=== PATIENT | female | born 1960 | race Caucasian/White ===

== ENCOUNTER 2018-11-14 02:59 | Emergency (ER) | payer MEDICARE ==
[~2018-11-14] VITALS: Ht 152.4 cm; Wt 205.0 kg
[~2018-11-14 02:59] MED LIST: ALPR.25T PO; CALC-671 PO; CALC166. PO; CHOL400T40 PO; MELO-198 PO; MULT-963 PO; OXYC-143 PO; PHEN37.555 PO; VENL150T4 PO
--- OUTSIDE RECORDS SUMMARY | 2018-11-14 03:05 | XMS REPORT ---
Author Author [facility]NAMURTHY [facility] Address [address] [place] [address] Care Team Providers Care Tube Turner Name Role Phone SUZE KRISHNAMURTHY Unavailable PROBLEMS Type Condition ICD9-CM Code [id number] Code Onset Dates Condition Status SNOMED Code Problem Essential (primary) hypertension I10 Active 13293676 ALLERGIES No Information ENCOUNTERS Encounter Location Date Diagnosis [facility] NYDIA ARANDA [address] [address] August, [facility] [address] [address] Jul, [facility] [address] [address] Jul, [address] [address] Jul, [address] [address] Jul, [address] [address] Jun, Essential (primary) hypertension I10 [address] [address] Jun, [address] [address] May, [facility] [address] [facility] [id number] [address] May, [address] [address] May, [facility] [address] [facility] [id number] [address] Apr, [facility] [address] [facility] [id number] [address] August, IMMUNIZATIONS No Known Immunizations SOCIAL HISTORY Never Assessed REASON FOR VISIT needs lab orders PLAN OF CARE VITAL SIGNS MEDICATIONS Unknown Medications RESULTS No Results PROCEDURES No Known procedures INSTRUCTIONS MEDICATIONS ADMINISTERED No Known Medications
--- OUTSIDE RECORDS SUMMARY | 2018-11-14 03:05 | XMS REPORT | Continuity of Care Document ---
Author Organization Unknown Address Unknown Phone Unavailable Allergies Active Description Code Type Severity Reaction Onset Reported/Identified Relationship to Patient Clinical Status Yes ibuprofen [id number] Drug Allergy Unknown N/A 09/06/2014 Medications There is no data. Problems Date Dx Coded Attending Type Code Diagnosis Diagnosed By 09/05/2014 Ot 562.10 09/05/2014 Ot V12.72 09/05/2014 Ot 562.10 09/05/2014 Ot V12.72 09/18/2014 PRASANNA PEREYRA DO Ot 354.0 02/15/2015 Ot 562.10 02/15/2015 Ot V12.72 02/15/2015 PRASANNA PEREYRA DO Ot 354.0 02/15/2015 PRASANNA PEREYRA DO Ot V72.83 02/15/2015 PRASANNA PEREYRA DO Ot V74.8 Procedures There is no data. Results There is no data. Encounters ACCT No. Visit Date/Time Discharge Status Pt. Type Provider Facility Loc./Unit Complaint [id number] 09/18/2014 13:10:00 09/18/2014 16:55:00 DIS Outpatient PRASANNA PEREYRA DO [facility] [id number] 09/06/2014 09:55:00 09/06/2014 23:59:59 CLS Outpatient PRASANNA PEREYRA DO Via [facility] PREOP [id number] 09/30/2010 08:54:00 Document Registration [email or web address] 09/18/2014 13:20:24 ACT Document Registration
--- OUTSIDE RECORDS SUMMARY | 2018-11-14 03:05 | XMS REPORT ---
Author Author SUZE [facility]ISHNAMURTHY [facility] Address [address] [place] [address] Care Team Providers Care Latin American Studies Director Name Role Phone SUZE KRISHNAMURTHY Unavailable PROBLEMS Type Condition ICD9-CM Code [id number]-AG Code Onset Dates Condition Status SNOMED Code Problem Essential (primary) hypertension I10 Active [id number] ALLERGIES No Information ENCOUNTERS Encounter Location Date Diagnosis [facility] NYDIA ARANDA [address] [address] August, [facility] NYDIA [address] [address] Jul, [facility] NYD[place] [address] [address] Jul, [address] [address] Jul, [address] [address] Jul, [address] [address] Jun, Essential (primary) hypertension I10 [address] [address] Jun, [address] [address] May, [facility] [address] [facility] [id number] [address] May, [address] [address] May, [facility] [address] [facility] [id number], [place] [address] Apr, [facility] [address] [facility] [id number], [place] [address] August, IMMUNIZATIONS No Known Immunizations SOCIAL HISTORY Never Assessed REASON FOR VISIT percocet refill PLAN OF CARE VITAL SIGNS MEDICATIONS Medication Instructions Dosage Frequency Start Date End Date Duration Status Percocet 7.5-325 MG Orally every 4 hrs 2 tablets as needed 4h Jun, 30 days Active RESULTS No Results PROCEDURES No Known procedures INSTRUCTIONS MEDICATIONS ADMINISTERED No Known Medications
--- OUTSIDE RECORDS SUMMARY | 2018-11-14 03:05 | XMS REPORT ---
Author Author Migration, Doctor Organization [facility] Address Unknown Phone Unavailable Care Team Providers Care Machine Room Engineer Name Role Phone Migration, Doctor Unavailable Unavailable PROBLEMS Type Condition ICD9-CM Code [id number] Code Onset Dates Condition Status SNOMED Code Problem Essential (primary) hypertension I10 Active [id number] ALLERGIES No Information ENCOUNTERS Encounter Location Date Diagnosis [address] [address] Jul, [address] [address] Jul, [address] [address] Jul, [address] [address] Jul, [address] [address] Jun, Essential (primary) hypertension I10 [address] [address] Jun, [address] [address] May, [facility] [address] [facility] [id number] [address] May, [address] [address] May, [facility] [address] [facility] [id number] [place] [address] Apr, [facility] [address] [facility] [id number] [address] August, IMMUNIZATIONS No Known Immunizations SOCIAL HISTORY Never Assessed REASON FOR VISIT [facility] PLAN OF CARE VITAL SIGNS MEDICATIONS Unknown Medications RESULTS No Results PROCEDURES No Known procedures INSTRUCTIONS MEDICATIONS ADMINISTERED No Known Medications
[2018-11-14] MEDS ORDERED: FUROSEMIDE 40 MG/4 ML INJ (LASIX) IVP ONE (03:15)
[2018-11-14] MEDS ORDERED: ASPIRIN 81 MG CHEW (CHILDREN'S ASA) PO ONE (03:15)
[2018-11-14] MEDS ORDERED: NITROGLYCERIN 2% OINT 1 GM UNIT DOSE PACKET TOP ONE (03:15)
--- NOTE | 2018-11-14 03:26 | ED Chest Pain ---
General Chief Complaint: Chest Pain Stated Complaint: CHEST PAIN Nursing Triage Note: pt states she got up to go to the restroom and started having cp around 0200, pain was a 10 at home and is a 4 upon arrival to ed Nursing Sepsis Screen: No Definite Risk History of Present Illness Date Seen by Provider: Nov 14, 2018 Time Seen by Provider: 03:20 Initial Comments 58 yo female morbidly obese >450 lbs got up to go to bathroom, had central chest pain waxing and waning EMS transports on arrival alert no obvious distress BP 180 pulse 80 O2 sat good pt states she has CHF has been non compliant with lasix recently has noted increased leg edema last 2d reports 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 [place], and that she had a heart cath within last 2 yrs which was neg for CAD little SOB some nausea no V Timing/Duration: 1 hour Severity/Quality: moderate Location: central Radiation: no radiation Prior CP/Workup: cardiac cath (was neg per pt) Allergies and Home Medications Allergies Coded Allergies: ibuprofen (Unverified Allergy, Unknown, 09/06/14) Home Medications Alprazolam 0.25 Mg Tab, 1-2 TAB PO PRN, (Reported) Calcium Carbonate/Vitamin D3 1 Each Tablet, 1 EACH PO DAILY, (Reported) Meloxicam 7.5 Mg Tablet, 1 EACH PO DAILY, (Reported) Multivitamin 1 Each Tablet, 1 EACH PO DAILY, (Reported) Oxycodone Hcl/Acetaminophen 1 Tab Tablet, 1 TAB PO Q4H PRN for PAIN, (Reported) Phentermine Hcl 37.5 Mg Capsule, 37.5 MG PO DAILY, (Reported) Venlafaxine Hcl 150 Mg Tab.osm.24, 150 MG PO DAILY, (Reported) Patient Home Medication List Home Medication List Reviewed: Yes Review of Systems Review of Systems Constitutional: no symptoms reported EENTM: No Symptoms Reported Respiratory: Shortness of Air (mild) Cardiovascular: Chest Pain; Denies Palpitations, Denies Syncope Gastrointestinal: No Symptoms Reported Genitourinary: No Symptoms Reported Musculoskeletal: no symptoms reported Past Llivsms-Vvavuj-Jgfngf Hx Patient Social History Alcohol Use: Denies Use Recreational Drug Use: No Smoking Status: Never a Smoker 2nd Hand Smoke Exposure: No Recent Foreign Travel: No Contact w/Someone Who Travel: No Recent Infectious Disease Expo: No Physical Abuse: No Sexual Abuse: No Mistreated: No Fear: No Seasonal Allergies Seasonal Allergies: No Past Medical History Surgeries: Yes (gastric sleeve) Respiratory: Yes (02 at night) Chronic Bronchitis Cardiac: Yes Hypertension Neurological: Yes 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 Disorders: No Female 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 Disorders: Denies Sexually Transmitted Disease: No HIV/AIDS: No Genitourinary: No Gastrointestinal: Yes ("pre cancerous polyps") Polyps Musculoskeletal: Yes Arthritis Endocrine: No HEENT: No Cancer: No Psychosocial: No Integumentary: Yes (bruises easily) Blood Disorders: No Physical Exam Vital Signs Vital Signs - First Documented 11/14/18 03:11 Temp 98.2 Pulse 77 Resp 20 B/P (MAP) 182/76 (111) O2 Delivery Nasal Cannula O2 Flow Rate 2.0 Capillary Refill : Less Than 3 Seconds Height, Weight, BMI Height: 5'1.00" Weight: 452lbs. 0.0oz. 205.289670fa; BMI Method:Stated General Appearance: No Apparent Distress HEENT: PERRL/EOMI Neck: Full Range of Motion Respiratory: Lungs Clear Cardiovascular: Regular Rate, Rhythm, Systolic Murmur Gastrointestinal: Normal Bowel Sounds, Non Tender, Soft Extremity: Pedal Edema (bilat non pitting), Swelling Progress/Results/Core Measures Results/Orders Lab Results Laboratory Tests Test 11/14/18 03:10 Range/Units White Blood Count 7.9 4.3-11.0 10^3/uL Red Blood Count 4.53 4.35-5.85 10^6/uL Hemoglobin 11.2 L 11.5-16.0 G/DL Hematocrit 39 35-52 % Mean Corpuscular Volume 85 80-99 FL Mean Corpuscular Hemoglobin 25 25-34 PG Mean Corpuscular Hemoglobin Concent 29 L 32-36 G/DL Red Cell Distribution Width 16.2 H 10.0-14.5 % Platelet Count 244 130-400 10^3/uL Mean Platelet Volume 8.8 7.4-10.4 FL Neutrophils (%) (Auto) 73 42-75 % Lymphocytes (%) (Auto) 17 12-44 % Monocytes (%) (Auto) 7 0-12 % Eosinophils (%) (Auto) 1 0-10 % Basophils (%) (Auto) 1 0-10 % Neutrophils # (Auto) 5.8 1.8-7.8 X 10^3 Lymphocytes # (Auto) 1.4 1.0-4.0 X 10^3 Monocytes # (Auto) 0.5 0.0-1.0 X 10^3 Eosinophils # (Auto) 0.1 0.0-0.3 10^3/uL Basophils # (Auto) 0.0 0.0-0.1 10^3/uL Prothrombin Time 12.7 12.2-14.7 SEC INR Comment 0.9 0.8-1.4 Sodium Level 142 135-145 MMOL/L Potassium Level 4.1 3.6-5.0 MMOL/L Chloride Level 99 98-107 MMOL/L Carbon Dioxide Level 31 21-32 MMOL/L Anion Gap 12 5-14 MMOL/L Blood Urea Nitrogen 18 7-18 MG/DL Creatinine 0.49 L 0.60-1.30 MG/DL Estimat Glomerular Filtration Rate > 60 BUN/Creatinine Ratio 37 Glucose Level 129 H 70-105 MG/DL Calcium Level 9.2 8.5-10.1 MG/DL Corrected Calcium 9.4 8.5-10.1 MG/DL Total Bilirubin 0.3 0.1-1.0 MG/DL Aspartate Amino Transf (AST/SGOT) 34 5-34 U/L Alanine Aminotransferase (ALT/SGPT) 26 0-55 U/L Alkaline Phosphatase 102 40-136 U/L Troponin I < 0.30 <0.30 NG/ML Total Protein 7.4 6.4-8.2 GM/DL Albumin 3.8 3.2-4.5 GM/DL My Orders Orders - CHANO SHUKLA MD Ekg Tracing (11/14/18 03:13) Iv Heplock-Insert (Order) (11/14/18 03:13) Furosemide Injection (Lasix Injection) (11/14/18 03:15) Aspirin Chewable Tablet (Baby Aspirin Ch (11/14/18 03:15) Nitroglycerin Ointment (Nitrobid Ointme (11/14/18 03:15) Chest 1 View Ap/Pa Only (11/14/18 03:13) Cbc With Automated Diff (11/14/18 03:13) Comprehensive Metabolic Panel (11/14/18 03:13) Troponin I (11/14/18 03:13) Protime With Inr (11/14/18 03:13) Show Horse Driver (11/14/18 03:13) Ondansetron Injection (Zofran Injectio (11/14/18 03:30) O2 (11/14/18 03:17) Medications Given in ED Current Medications Medications Dose Ordered Sig/Christal Route Start Time Stop Time Status Last Admin Dose Admin Aspirin 324 mg ONCE ONCE PO 11/14/18 03:15 11/14/18 03:17 DC 11/14/18 03:22 324 MG Furosemide 40 mg ONCE ONCE IVP 11/14/18 03:15 11/14/18 03:17 DC 11/14/18 03:26 40 MG Nitroglycerin 1 inch ONCE ONCE TOP 11/14/18 03:15 11/14/18 03:17 DC 11/14/18 03:23 1 INCH Ondansetron HCl 4 mg ONCE ONCE IVP 11/14/18 03:30 11/14/18 03:31 DC 11/14/18 03:22 4 MG Vital Signs/I&O 11/14/18 11/14/18 11/14/18 03:11 03:11 03:22 Temp 98.2 Pulse 77 Resp 20 B/P (MAP) 182/76 (111) O2 Delivery Nasal Cannula Nasal Cannula Nasal Cannula O2 Flow Rate 2.0 2.00 Blood Pressure Mean: 111 Progress Progress Note : Time: 04:12 Progress Note pt has had good diuresis with IV lasix BP 150 she is currently asymptomatic no pain no SOB no N trop neg lab systems analyst has left facility excellent creatinine of 0.49 CXR cardiomeg lungs clear maybe slight PVC EKG without acute changes pt readily admits she stopped taking her lasix and her legs got more swollen l eading up to tonight's episode also she reports heart cath neg for CAD within last 2 years pt feels comfortable going home and resuming her lasix Initial ECG Impression Date: Nov 14, 2018 Initial ECG Impression Time: 03:28 Initial ECG Rate: 78 Initial ECG Rhythm: Normal Sinus Comment no acute ST changes Departure Impression Primary Impression: Chest pain Qualified Codes: R07.9 - Chest pain, unspecified Additional Impression: CHF (congestive heart failure) Qualified Codes: I50.9 - Heart failure, unspecified Disposition: 01 HOME, SELF-CARE Condition: Improved Departure-Patient Inst. Decision time for Depature: 04:19 Referrals: SELFSUZE MD (PCP) Primary Care Physician Patient Instructions: Chest Pain, Heart Failure, Adult (DC) Add. Discharge Instructions: please resume your lasix don't hesitate to return if you worsen in some way CHANO SHUKLA MD Nov 14, 2018 03:26
[2018-11-14 03:27] LABS: HEMATOCRIT 39 % (35-52); HEMOGLOBIN 11.2 G/DL (11.5-16.0); MEAN CORPUSCULAR HEMOGLOBIN 25 PG (25-34); MEAN CORPUSCULAR HGB CONC 29 G/DL (32-36); MEAN CORPUSCULAR VOLUME 85 FL (80-99); PLATELET COUNT 244 10^3/uL (130-400); RED CELL DISTRIBUTION WIDTH 16.2 % (10.0-14.5); WHITE BLOOD COUNT 7.9 10^3/uL (4.3-11.0)
[2018-11-14 03:28] LABS: BASOPHILS % (AUTO) 1 % (0-10); EOSINOPHILS # (AUTO) 0.1 10^3/uL (0.0-0.3); EOSINOPHILS % (AUTO) 1 % (0-10); LYMPHOCYTES # (AUTO) 1.4 X 10^3 (1.0-4.0); LYMPHOCYTES % (AUTO) 17 % (12-44); MEAN PLATELET VOLUME 8.8 FL (7.4-10.4); MONOCYTES # (AUTO) 0.5 X 10^3 (0.0-1.0); MONOCYTES % (AUTO) 7 % (0-12); NEUTROPHILS # (AUTO) 5.8 X 10^3 (1.8-7.8); NEUTROPHILS % (AUTO) 73 % (42-75)
[2018-11-14] MEDS ORDERED: ONDANSETRON 4 MG/2 ML (SDV) Z0FRAN IVP ONE (03:30)
[2018-11-14 03:37] LABS: INR 0.9 (0.8-1.4); PROTHROMBIN TIME PATIENT 12.7 SEC (12.2-14.7)
[2018-11-14 03:43] LABS: ALKALINE PHOSPHATASE 102 U/L (40-136); BILIRUBIN,TOTAL 0.3 MG/DL (0.1-1.0); BUN/CREATININE RATIO 37; CALCIUM 9.2 MG/DL (8.5-10.1); CARBON DIOXIDE 31 MMOL/L (21-32); CHLORIDE 99 MMOL/L (98-107); CREATININE SERUM 0.49 MG/DL (0.60-1.30); GFR ESTIMATED > 60; GLUCOSE 129 MG/DL (70-105); POTASSIUM 4.1 MMOL/L (3.6-5.0); SODIUM 142 MMOL/L (135-145)
[2018-11-14 03:44] LABS: ALANINE AMINOTRANSFERASE 26 U/L (0-55); ALBUMIN 3.8 GM/DL (3.2-4.5); TOTAL PROTEIN 7.4 GM/DL (6.4-8.2)
[2018-11-14 04:23] VITALS: BP 173/89
--- NOTE | 2018-11-14 08:01 | Diagnostic Imaging Report ---
INDICATION: Chest pain No prior examinations are available for comparison. FINDINGS: There's cardiomegaly. The lungs are clear. There is no pleural effusion or pneumothorax. The mediastinum is unremarkable. IMPRESSION: No acute cardiopulmonary abnormality. Cardiomegaly. Dictated by: Dictated on workstation # [id number]
== END 2018-11-14 04:22 | disposition home or self-care (01) ==
LOC: EDUNIT# 02:59 → ER FS 03:02
DX: I11.0 Hypertensive heart disease with heart failure (principal); I50.9 Heart failure, unspecified; E66.01 Morbid (severe) obesity due to excess calories; J42 Unspecified chronic bronchitis; Z86.010 Personal history of colon polyps; Z99.81 Dependence on supplemental oxygen; Z95.9 Presence of cardiac and vascular implant and graft, unspecified; Z88.6 Allergy status to analgesic agent; Z98.84 Bariatric surgery status; Z68.45 Body mass index [BMI] 70 or greater, adult
CPT/HCPCS: 36415; 71045; 80053; 84484; 85025; 85610; 93005

== ENCOUNTER 2019-03-28 15:13 | Emergency (ER) | payer MEDICARE ==
[~2019-03-28] VITALS: Ht 152 cm; Wt 218.0 kg
--- NOTE | 2019-03-28 15:39 | ED Respiratory ---
General Stated Complaint: WHEEZING Source: patient Exam Limitations: no limitations History of Present Illness Date Seen by Provider: Mar 28, 2019 Time Seen by Provider: 15:22 Initial Comments Patient presents to ER by private conveyance with her significant other and chief complaint of about 3-4 days progressively worsening productive cough shortness of breath and some night sweats over the past 2 days. She has baseline dependence on oxygen by nasal cannula at 2 L/m. At the clinic they said on her oxygen supply at 2 liters she was in the upper 80s. They switched her over to their oxygen on 2 L and she was about 92-94. She has a history of COPD but has not used her breathing treatment lately due to her albuterol supply being . She feels a rattling her left chest and is concerned she has pneumonia. She has not been on any antibiotics. They did not do any blood work, chest x-ray swabs the urgent care clinic. She was able to walk to the room. Nursing reports she is afebrile and had an oxygen sat around 90% after ambulating to the room on room air. Allergies and Home Medications Allergies Coded Allergies: ibuprofen (Unverified Allergy, Unknown, 09/06/14) Home Medications Alprazolam 0.25 Mg Tab, 1-2 TAB PO PRN, (Reported) Calcium Carbonate/Vitamin D3 1 Each Tablet, 1 EACH PO DAILY, (Reported) Meloxicam 7.5 Mg Tablet, 1 EACH PO DAILY, (Reported) Multivitamin 1 Each Tablet, 1 EACH PO DAILY, (Reported) Oxycodone Hcl/Acetaminophen 1 Tab Tablet, 1 TAB PO Q4H PRN for PAIN, (Reported) Phentermine Hcl 37.5 Mg Capsule, 37.5 MG PO DAILY, (Reported) Venlafaxine Hcl 150 Mg Tab.osm.24, 150 MG PO DAILY, (Reported) Patient Home Medication List Home Medication List Reviewed: Yes Review of Systems Review of Systems Constitutional: see HPI, chills, diaphoresis; No fever; malaise EENTM: No ear discharge, No ear pain Respiratory: cough, phlegm, short of breath; No wheezing Cardiovascular: No chest pain, No palpitations Gastrointestinal: No abdominal pain, No nausea Genitourinary: No discharge, No dysuria Musculoskeletal: back pain (left lateral rib cage pain on deep inspiration); No joint pain All Other Systems Reviewed Negative Unless Noted: Yes Past Vyhuvki-Aqhzkl-Jzvnff Hx Patient Social History Alcohol Use: Denies Use Recreational Drug Use: No Smoking Status: Never a Smoker 2nd Hand Smoke Exposure: No Seasonal Allergies Seasonal Allergies: No Past Medical History Surgeries: Yes (gastric sleeve) Respiratory: Yes (02 at night) Chronic Bronchitis Cardiac: Yes Chronic Edema/Swelling, Coronary Artery Disease, Hypertension Neurological: Yes 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 Disorders: No Female 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 Disorders: Denies Sexually Transmitted Disease: No HIV/AIDS: No Genitourinary: No Gastrointestinal: Yes ("pre cancerous polyps") Polyps Musculoskeletal: Yes Arthritis Endocrine: No HEENT: No Cancer: No Psychosocial: No Integumentary: Yes (bruises easily) Blood Disorders: No Physical Exam Vital Signs - First Documented 03/28/19 15:22 Temp 36.4 Pulse 81 Resp 22 B/P (MAP) 160/72 (101) Pulse Ox 93 O2 Delivery Room Air O2 Flow Rate 2.00 Capillary Refill : Height: 5'1.00" Weight: 452lbs. 0.0oz. [id number]; BMI Method:Stated General Appearance: no apparent distress, obese Eyes: Bilateral Eye Normal Inspection, Bilateral Eye PERRL, Bilateral Eye EOMI HEENT: PERRL/EOMI, pharynx normal Neck: non-tender, full range of motion Respiratory: lungs clear, no respiratory distress, no accessory muscle use, decreased breath sounds, other (respirations 18 breaths per minute, oxygen sats 90% on room air, 95% on 2 L at baseline and heart rate 75-90, regular) Cardiovascular: normal peripheral pulses, regular rate, rhythm, other Extremities: normal range of motion, non-tender, normal capillary refill Neurologic/Psychiatric: alert, normal mood/affect, oriented x 3, other (baseline essential tremor, chronic) Progress/Results/Core Measures Suspected Sepsis SIRS Temperature: Pulse: Respiratory Rate: Laboratory Tests 03/28/19 16:00: White Blood Count 9.9 Blood Pressure / Mean: Laboratory Tests 03/28/19 16:00: Creatinine 0.49L, Platelet Count 345, Total Bilirubin 0.3 Results/Orders Lab Results Laboratory Tests Test 03/28/19 16:00 03/28/19 16:06 Range/Units White Blood Count 9.9 4.3-11.0 10^3/uL Red Blood Count 4.47 4.35-5.85 10^6/uL Hemoglobin 10.7 L 11.5-16.0 G/DL Hematocrit 37 35-52 % Mean Corpuscular Volume 83 80-99 FL Mean Corpuscular Hemoglobin 24 L 25-34 PG Mean Corpuscular Hemoglobin Concent 29 L 32-36 G/DL Red Cell Distribution Width 16.2 H 10.0-14.5 % Platelet Count 345 130-400 10^3/uL Mean Platelet Volume 8.7 7.4-10.4 FL Neutrophils (%) (Auto) 84 H 42-75 % Lymphocytes (%) (Auto) 8 L 12-44 % Monocytes (%) (Auto) 5 0-12 % Eosinophils (%) (Auto) 3 0-10 % Basophils (%) (Auto) 1 0-10 % Neutrophils # (Auto) 8.3 H 1.8-7.8 X 10^3 Lymphocytes # (Auto) 0.8 L 1.0-4.0 X 10^3 Monocytes # (Auto) 0.5 0.0-1.0 X 10^3 Eosinophils # (Auto) 0.3 0.0-0.3 10^3/uL Basophils # (Auto) 0.1 0.0-0.1 10^3/uL Neutrophils % (Manual) 85 % Lymphocytes % (Manual) 7 % Monocytes % (Manual) 2 % Eosinophils % (Manual) 3 % Basophils % (Manual) 3 % Band Neutrophils 1 % Sodium Level 139 135-145 MMOL/L Potassium Level 4.8 3.6-5.0 MMOL/L Chloride Level 96 L 98-107 MMOL/L Carbon Dioxide Level 30 21-32 MMOL/L Anion Gap 13 5-14 MMOL/L Blood Urea Nitrogen 14 7-18 MG/DL Creatinine 0.49 L 0.60-1.30 MG/DL Estimat Glomerular Filtration Rate > 60 BUN/Creatinine Ratio 29 Glucose Level 115 H 70-105 MG/DL Calcium Level 9.1 8.5-10.1 MG/DL Corrected Calcium 9.2 8.5-10.1 MG/DL Total Bilirubin 0.3 0.1-1.0 MG/DL Aspartate Amino Transf (AST/SGOT) 15 5-34 U/L Alanine Aminotransferase (ALT/SGPT) 12 0-55 U/L Alkaline Phosphatase 84 40-136 U/L C-Reactive Protein 2.44 H <0.50 MG/DL Pro-B-Type Natriuretic Peptide 226.5 H <75.0 PG/ML Total Protein 7.6 6.4-8.2 GM/DL Albumin 3.9 3.2-4.5 GM/DL Blood Gas Puncture Site RT RAIDAL Blood Gas Patient Temperature 36.4 Arterial Blood pH 7.42 7.37-7.43 Arterial Blood Partial Pressure CO2 60 H 35-45 MMHG Arterial Blood Partial Pressure O2 68 L 79-93 MMHG Arterial Blood HCO3 39 H 23-27 MMOL/L Arterial Blood Total CO2 40.7 H 21.0-31.0 MMOL/L Arterial Blood Oxygen Saturation 94 94-100 % Arterial Blood Base Excess 12.1 H -2.5-2.5 MMOL/L Mickey Test OK Blood Gas Ventilator Setting NO Blood Gas Inspired Oxygen 2L My Orders Orders - ANGELIKA RODRIGUEZ Cbc With Automated Diff (03/28/19 15:31) Comprehensive Metabolic Panel (03/28/19 15:31) Probnp Fs (03/28/19 15:31) Influenza A And B Antigens (03/28/19 15:31) Crp Fs (03/28/19 15:31) Chest 1 View Ap/Pa Only (03/28/19 15:31) Ed Iv/Invasive Line Start (03/28/19 15:31) Albuterol/Ipra Inhalation Soln (Duoneb I (03/28/19 15:45) Svn Small Volume Nebulizer (03/28/19 15:31) Arterial Blood Gas (03/28/19 15:31) Sputum Culture (03/28/19 16:14) Manual Differential (03/28/19 16:00) Medications Given in ED Current Medications Medications Dose Ordered Sig/Christal Route Start Time Stop Time Status Last Admin Dose Admin Albuterol/ Ipratropium 3 ml ONCE ONCE INH 03/28/19 15:45 03/28/19 15:46 DC 03/28/19 16:18 3 ML Vital Signs/I&O 03/28/19 15:22 Temp 36.4 Pulse 81 Resp 22 B/P (MAP) 160/72 (101) Pulse Ox 93 O2 Delivery Room Air O2 Flow Rate 2.00 Capillary Refill : Progress Note #1: Time: 15:39 Progress Note With her history of oxygen-dependent COPD she is 94-95% on 2 L at rest which is totally appropriate. She is not tachycardic, afebrile and exerting no extra work of breathing. We'll give her a DuoNeb and relisten to her afterwards. Plan to get a chest x-ray and some labs to help us determine if she has influenza/bronchitis/pneumonia/COPD exacerbation. ABG. Progress Note #2: Time: 17:00 Progress Note ABG demonstrates chronic, nonacute COPD. EKG unremarkable. Labs unremarkable. Do not demonstrate any evidence on x-ray examination or labs for a bacterial pneumonia. Suspects she has viral bronchitis. She responded well to the breathing treatment and only has very scant wheezes heard on the right side. Suspect she's having some pleural chest pain on the left side since is reproducible to deep inspiration and mildly reproducible to direct palpation. We will encourage some NSAIDs, heating pads and give her a refill of her albuterol. Vital signs continue to be aseptic. Influenza pending. Diagnostic Imaging Diagonstic Imaging: Xray Plain Films/CT/US/NM/MRI: chest (1v) Comments NAME: ROSIE NINO [facility] REC#: [id number] PT STATUS: REG ER : 1960 PHYSICIAN: ANGELIKA RODRIGUEZ MD ADMIT DATE: 03/28/19/ER FS Draft Date of Exam:03/28/19 CHEST 1 VIEW AP/PA ONLY \\ EXAMINATION: Chest 1 view HISTORY: Wheezing and coughing. COMPARISON: 11/14/2018. FINDINGS: There is cardiomegaly with central pulmonary vascular congestion and mild interstitial edema in the perihilar regions bilaterally. No large pleural effusion or pneumothorax. No focal consolidation or pulmonary mass. The osseous structures demonstrate no acute abnormalities. IMPRESSION: 1. Cardiomegaly with central pulmonary vascular congestion and mild perihilar interstitial edema. Dictated on workstation # [id number] Dict: 03/28/19 1607 Trans: 03/28/19 1610 [id number] Interpreted by: ZBIGNIEW SOLIS DO Electronically signed by: Reviewed: Reviewed by Me Departure Impression Primary Impression: Viral upper respiratory tract infection with cough Additional Impression: COPD (chronic obstructive pulmonary disease) with acute bronchitis Disposition: HOME, SELF-CARE Condition: Stable Departure-Patient Inst. Decision time for Depature: 17:21 Referrals: SUZE KRISHNAMURTHY MD (PCP) Primary Care Physician Patient Instructions: COPD Including Emphysema (DC), Cough, Runny Nose, and the Common Cold Add. Discharge Instructions: You have a virus and can expect to be sick for the next 1-2 weeks. If you start to have high fevers above 102.5 or not getting better in 7-10 days then you need follow-up with her primary care provider. Use your albuterol inhaler once every 61H and every 4 hours as needed. If you're using it consistently and still feeling wheezy or short of breath then please return to the ER. Wear your oxygen as prescribed. Humidifiers can be helpful. Vapor rubs such as Vicks or Mentholatum on the chest may also be helpful. Scripts Ipratropium/Albuterol Sulfate (Iprat-Albut 0.5-3(2.5) mg/3 ml) 3 Ml Ampul.neb 3 ML IH Q4H PRN for SHORTNESS OF BREATH, #100 EACH 0 Refills Prov: ANGELIKA RODRIGUEZ 03/28/19 ANGELIKA RODRIGUEZ Mar 28, 2019 15:39
[2019-03-28] MEDS ORDERED: RT-ALBUTEROL/IPRATROPIUM 3 ML (DUONEB) VIAL INH ONE (15:45)
--- NOTE | 2019-03-28 16:10 | Diagnostic Imaging Report ---
EXAMINATION: Chest 1 view HISTORY: Wheezing and coughing. COMPARISON: 11/14/2018. FINDINGS: There is cardiomegaly with central pulmonary vascular congestion and mild interstitial edema in the perihilar regions bilaterally. No large pleural effusion or pneumothorax. No focal consolidation or pulmonary mass. The osseous structures demonstrate no acute abnormalities. IMPRESSION: 1. Cardiomegaly with central pulmonary vascular congestion and mild perihilar interstitial edema. Dictated by: Dictated on workstation # [id number]
[2019-03-28 16:15] LABS: ABG BASE EXCESS 12.1 MMOL/L (-2.5-2.5); ABG OXYGEN SATURATION 94 % (94-100); ABG PCO2 60 MMHG (35-45); ABG PH 7.42 (7.37-7.43); ABG PO2 68 MMHG (79-93); ABG TCO2 40.7 MMOL/L (21.0-31.0); ALLENS TEST OK
[2019-03-28 16:17] LABS: INSPIRED O2 2L; PATIENT TEMP 36.4; VENTILATOR NO
[2019-03-28 16:25] LABS: HEMATOCRIT 37 % (35-52); HEMOGLOBIN 10.7 G/DL (11.5-16.0); MEAN CORPUSCULAR HEMOGLOBIN 24 PG (25-34); MEAN CORPUSCULAR HGB CONC 29 G/DL (32-36); MEAN CORPUSCULAR VOLUME 83 FL (80-99); PLATELET COUNT 345 10^3/uL (130-400); RED CELL DISTRIBUTION WIDTH 16.2 % (10.0-14.5); WHITE BLOOD COUNT 9.9 10^3/uL (4.3-11.0)
[2019-03-28 16:26] LABS: BASOPHILS % (AUTO) 1 % (0-10); EOSINOPHILS % (AUTO) 3 % (0-10); LYMPHOCYTES % (AUTO) 8 % (12-44); MEAN PLATELET VOLUME 8.7 FL (7.4-10.4); MONOCYTES % (AUTO) 5 % (0-12); NEUTROPHILS # (AUTO) 8.3 X 10^3 (1.8-7.8); NEUTROPHILS % (AUTO) 84 % (42-75)
[2019-03-28 16:27] LABS: BASOPHILS # (AUTO) 0.1 10^3/uL (0.0-0.1); EOSINOPHILS # (AUTO) 0.3 10^3/uL (0.0-0.3); LYMPHOCYTES # (AUTO) 0.8 X 10^3 (1.0-4.0); MONOCYTES # (AUTO) 0.5 X 10^3 (0.0-1.0)
[2019-03-28 16:45] LABS: BAND NEUTROPHILS 1 %; BASOPHILS % (MANUAL) 3 %; EOSINOPHILS % (MANUAL) 3 %; LYMPHOCYTES % (MANUAL) 7 %; MONOCYTES % (MANUAL) 2 %; NEUTROPHILS % (MANUAL) 85 %
[2019-03-28 16:55] LABS: SODIUM 139 MMOL/L (135-145)
[2019-03-28 16:56] LABS: ALANINE AMINOTRANSFERASE 12 U/L (0-55); ALKALINE PHOSPHATASE 84 U/L (40-136); BILIRUBIN,TOTAL 0.3 MG/DL (0.1-1.0); BUN/CREATININE RATIO 29; CALCIUM 9.1 MG/DL (8.5-10.1); CARBON DIOXIDE 30 MMOL/L (21-32); CHLORIDE 96 MMOL/L (98-107); CREATININE SERUM 0.49 MG/DL (0.60-1.30); GFR ESTIMATED > 60; GLUCOSE 115 MG/DL (70-105); POTASSIUM 4.8 MMOL/L (3.6-5.0); TOTAL PROTEIN 7.6 GM/DL (6.4-8.2)
[2019-03-28 16:57] LABS: ALBUMIN 3.9 GM/DL (3.2-4.5)
[2019-03-28] MEDS ORDERED: IPRA3AMP31 IH (17:23)
[2019-03-28] MEDS ORDERED: RX-ALBUTEROL NEB 2.5 MG/3 ML PACK #5 IH STA (17:24)
[2019-03-28] MEDS ORDERED: RX-IPRATROPIUM BROMIDE 0.5 MG/2.5 ML #3 (ATROVENT) IH STA (17:24)
[2019-03-28 17:36] VITALS: BP 140/90
== END 2019-03-28 17:37 | disposition home or self-care (01) ==
LOC: EDUNIT# 15:13 → ER FS 15:14
DX: J06.9 Acute upper respiratory infection, unspecified (principal); J44.0 Chronic obstructive pulmonary disease with (acute) lower respiratory infection; J20.9 Acute bronchitis, unspecified; I25.10 Atherosclerotic heart disease of native coronary artery without angina pectoris; I10 Essential (primary) hypertension; Z86.010 Personal history of colon polyps; Z99.81 Dependence on supplemental oxygen; Z88.6 Allergy status to analgesic agent
CPT/HCPCS: 36415; 71045; 80053; 82805; 83880; 85007; 85027; 86141; 87070; 87205; 87804; 94640

== ENCOUNTER → 2019-11-13 | Outpatient (CLI) | payer MEDICARE ==
[~2019-11-13] MED LIST changes: +ALLO300T2 PO; +ALPR0.254 PO; +APIX5TAB PO; +ATOR40TA70 PO; +CHOL500049 PO; +FLUT12AE4 IH; +FURO40TA4 PO; +IPRA3AMP31 IH; +IPRA4AER IH; +LEVO25TA5 PO; +METO50TA7 PO; +MIRA25TA PO; +MULT-1136 PO; +OXYC-464 PO; +POTA20TA8 PO; +SMZ/TMP; +SULF1TAB35 PO; +VENL150C98 PO
--- NOTE | 2019-11-15 08:34 | Anesthesia-General Post-Op ---
General Patient Condition Mental Status/LOC: Same as Preop Cardiovascular: Satisfactory Nausea/Vomiting: Absent Respiratory: Satisfactory Pain: Controlled Complications: Absent Post Op Complications Complications None Follow Up Care/Instructions Patient Instructions None needed. Anesthesia/Patient Condition Patient Condition Patient is doing well, no complaints, stable vital signs, no apparent adverse anesthesia problems. No complications reported per nursing. LALIT ESPINOSA CRNA Nov 15, 2019 08:34
== END ==
LOC: LABNPT 14:53
PROVIDERS: ATTEND Surgery
DX: Z53.9 Procedure and treatment not carried out, unspecified reason (principal)

== ENCOUNTER 2019-12-01 12:21 | Emergency (ER) | payer MEDICARE ==
[~2019-12-01] VITALS: Ht 152.4 cm; Wt 205.9 kg
--- NOTE | 2019-12-01 12:22 | NUR ---
Pt arrival via [facility] from her residence with [employer] assist for lifting. Pt reports sitting on toilet to have diarrhea after taking a Bactrim tablet and became dizzy and then could not feel her legs. Pt had a Home Health Aide present that had been there to engage in a dressing change on posterior R leg from a recent hospitalization with abscess drained in OR that MRSA positive. Pt wears chronic O2 and EMS has patient between 4-5 L via simple mask as pt is mouth breathing and sats continue to decline < 90. Pt denies being a URIEL (sleep apnea). Pt states, "No I am not, they said just waer your oxygen as prescribed." Pt actually denies having a sleep study. It is noted pt rests eyes frequently and SaO2 at 5L/m simple mask decline to 85-87%. Pt awakened and advised the appearance of obstructive apnea appears to be cause. Pt reporting she had to be on 8L/m n.c. and weaned to 5 L/m by time of discharge. Pt states she has had her Home Health staff continue to turn down the O2 liters since her discharge 11/20/19 as they see some 97%'s and told her they would adjust. Pt states she has only been wearing 3 L/m for awhile now. Pt did state she walked across a livingroom to the bathroom in her apt on 3 L/m with approx 25 ft tubing and then this event happened.
--- NOTE | 2019-12-01 12:40 | ED Dyspnea ---
General Stated Complaint: DIZZINESS; HYPOTENSION Source of Information: Patient, EMS History of Present Illness Date Seen by Provider: Dec 01, 2019 Time Seen by Provider: 12:34 Initial Comments 59-year-old obese female presents via EMS she called because she had become weak and sweaty after having a bout of diarrhea. EMS arrived find her in her bathroom, still on the toilet, awake and alert. Fire department and assisted to get her out of her second floor apartment. No other complications of the patie nt's weight and immobility. Episode of low saturation as patient was off her oxygen. Normally on 3 L per nasal cannula according the patient. Was diaphoretic and short of air during her episode which prompted her to call, however on arrival denies chest pain, shortness of air, dyspnea, recent illness or fever or chills. Was seen recently an outpatient facility for an abscess in the back of her right thigh. Diagnosed with MRSA and started Bactrim yesterday. Allergies and Home Medications Allergies Coded Allergies: ibuprofen (Unverified Allergy, Unknown, 09/06/14) Home Medications Albuterol/Ipratropium 4 Gm Aero, 1 PUFF IH Q6H Prescribed by: GAIL MORENO on 11/20/191428 Allopurinol 300 Mg Tablet, 300 MG PO DAILY, (Reported) Alprazolam 0.25 Mg Tablet, 0.25 MG PO DAILY PRN for TREMORS, (Reported) Apixaban 5 Mg Tablet, 5 MG PO BID, (Reported) Atorvastatin Calcium 40 Mg Tablet, 40 MG PO DAILY, (Reported) Cholecalciferol (Vitamin D3) 1,250 Mcg Capsule, 1,250 MCG PO WED, (Reported) Fluticasone/Salmeterol 12 Gm Hfa.aer.ad, 2 PUFF IH BID Prescribed by: GAIL MORENO on 11/20/191428 Furosemide 40 Mg Tablet, 40 MG PO DAILY Prescribed by: GAIL MORENO on 11/20/19 142 Levothyroxine Sodium 25 Mcg Tablet, 25 MCG PO DAILY, (Reported) Metoprolol Succinate 50 Mg Tab.er.24h, 50 MG PO DAILY, (Reported) Mirabegron 25 Mg Tab.er.24h, 25 MG PO DAILY, (Reported) Multivitamin 1 Each Tablet, 1 EACH PO DAILY, (Reported) Oxycodone HCl/Acetaminophen 1 Each Tablet, 1 EA PO Q6H PRN for PAIN-MODERATE (5- 7), (Reported) Potassium Chloride 20 Meq Tab.er.prt, 20 MEQ PO DAILY@0900 Prescribed by: GAIL MORENO on 11/20/19 1429 Venlafaxine HCl 150 Mg Cap.er.24h, 150 MG PO HS, (Reported) Patient Home Medication List Home Medication List Reviewed: Yes Review of Systems Review of Systems Constitutional: see HPI; No dizziness, No fever, No malaise; weakness Respiratory: No cough, No hemoptysis; short of breath Cardiovascular: No chest pain; edema (chronic); No palpitations, No syncope Gastrointestinal: No abdominal pain, No constipation; diarrhea; No loss of appetite, No nausea, No vomiting Musculoskeletal: No back pain, No joint pain Psychiatric/Neurological: Denies Headache; Numbness (of legs during event, resolved now.) Past Zbtiwbk-Psglvr-Ohafjq Hx Past Med/Social Hx: Reviewed Nursing Past Med/Soc Hx Patient Social History Former Smoker, Quit: Jan 03, 2017 2nd Hand Smoke Exposure: No Recent Hopitalizations: No Seasonal Allergies Seasonal Allergies: No Past Medical History Surgeries: Yes (gastric sleeve) Section, Tubal Ligation Respiratory: Yes Asthma, COPD Cardiac: Yes High Cholesterol, Hypertension Neurological: No 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 Disorders: No Female 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 Sexually Transmitted Disease: No HIV/AIDS: No Genitourinary: Yes UTI-Chronic Gastrointestinal: No Polyps Musculoskeletal: Yes Arthritis Endocrine: No HEENT: No Cancer: No Psychosocial: Yes Anxiety Integumentary: Yes Recent Skin Changes Blood Disorders: No Family Medical History Cardiovascular disease 19 MOTHER Diabetes mellitus 19 FATHER 19 MOTHER G8 BROTHER G8 BROTHER G8 SISTER G8 SISTER FH: tremor 19 FATHER G8 SISTER Hypertension 19 FATHER G8 BROTHER G8 BROTHER G8 BROTHER G8 SISTER G8 SISTER Myocardial infarction 19 MOTHER G8 SISTER No Pertinent Family Hx Physical Exam Vital Signs Vital Signs - First Documented 12/01/19 12:22 Temp 36.8 Pulse 110 Resp 25 B/P (MAP) 139/75 (96) Pulse Ox 85 O2 Delivery Simple Mask O2 Flow Rate 4.00 Capillary Refill : Height, Weight, BMI Height: 5'1.00" Weight: 452lbs. 0.0oz. 205.873002fn; 95.22 BMI Method:Stated General Appearance: No Apparent Distress, Obese (> 400lbs) HEENT: PERRL/EOMI, Normal ENT Inspection Neck: Non Tender, Supple Respiratory: Chest Non Tender, Lungs Clear Cardiovascular: Tachycardia (100-110's) Gastrointestinal: Non Tender, Soft; No Guarding Extremity: Pedal Edema (gross chronic edema b/l LE's) Progress/Results/Core Measures Results/Orders Lab Results Laboratory Tests Test 12/01/19 12:45 Range/Units White Blood Count 8.6 4.3-11.0 10^3/uL Red Blood Count 4.64 4.35-5.85 10^6/uL Hemoglobin 11.1 L 11.5-16.0 G/DL Hematocrit 39 35-52 % Mean Corpuscular Volume 85 80-99 FL Mean Corpuscular Hemoglobin 24 L 25-34 PG Mean Corpuscular Hemoglobin Concent 28 L 32-36 G/DL Red Cell Distribution Width 17.8 H 10.0-14.5 % Platelet Count 436 H 130-400 10^3/uL Mean Platelet Volume 8.5 7.4-10.4 FL Neutrophils (%) (Auto) 98 H 42-75 % Lymphocytes (%) (Auto) 1 L 12-44 % Monocytes (%) (Auto) 1 0-12 % Eosinophils (%) (Auto) 0 0-10 % Basophils (%) (Auto) 0 0-10 % Neutrophils # (Auto) 8.4 H 1.8-7.8 X 10^3 Lymphocytes # (Auto) 0.1 L 1.0-4.0 X 10^3 Monocytes # (Auto) 0.1 0.0-1.0 X 10^3 Eosinophils # (Auto) 0.0 0.0-0.3 10^3/uL Basophils # (Auto) 0.0 0.0-0.1 10^3/uL Neutrophils % (Manual) 59 % Lymphocytes % (Manual) 1 % Monocytes % (Manual) 0 % Eosinophils % (Manual) 0 % Basophils % (Manual) 0 % Metamyelocytes % 3 % Band Neutrophils 37 % Hypochromasia 1+ Sodium Level 141 135-145 MMOL/L Potassium Level 4.2 3.6-5.0 MMOL/L Chloride Level 98 98-107 MMOL/L Carbon Dioxide Level 34 H 21-32 MMOL/L Anion Gap 9 5-14 MMOL/L Blood Urea Nitrogen 25 H 7-18 MG/DL Creatinine 0.80 0.60-1.30 MG/DL Estimat Glomerular Filtration Rate > 60 BUN/Creatinine Ratio 31 Glucose Level 115 H 70-105 MG/DL Calcium Level 9.2 8.5-10.1 MG/DL Corrected Calcium 9.3 8.5-10.1 MG/DL Total Bilirubin 0.3 0.1-1.0 MG/DL Aspartate Amino Transf (AST/SGOT) 29 5-34 U/L Alanine Aminotransferase (ALT/SGPT) 30 0-55 U/L Alkaline Phosphatase 89 40-136 U/L Total Protein 7.8 6.4-8.2 GM/DL Albumin 3.9 3.2-4.5 GM/DL My Orders Orders - FREDAVENSTBRIAN WARD DO Ed Iv/Invasive Line Start (12/01/19 12:31) Cbc With Automated Diff (12/01/19 12:31) Comprehensive Metabolic Panel (12/01/19 12:31) Chest 1 View Ap/Pa Only (12/01/19 12:31) Ekg Tracing (12/01/19 12:33) Manual Differential (12/01/19 12:45) Vital Signs/I&O 12/01/19 12:22 Temp 36.8 Pulse 110 Resp 25 B/P (MAP) 139/75 (96) Pulse Ox 85 O2 Delivery Simple Mask O2 Flow Rate 4.00 Progress Progress Note : Progress Note Patient states she was on 8 liters Oxygen while in hospital, but weaned down to 5 liters at DC to home. Pt states she has been weaning herself down lower, now at 2 liters. Encouraged pt NOT to wean herself off of her oxygen, but to continue with recommended levels unless recommended by a Physician. Oxygen sat's mid 90's% on 5 liters. PMHx signif for medical non-compliance and URIEL, but pt denies Hx of sleep apnea. Initial ECG Impression Time: 12:50 Initial ECG Rate: 105 Initial ECG Rhythm: S.Tach Initial ECG Intervals: Normal Initial ECG Impression: Nonspecific Changes Diagnostic Imaging Diagonstic Imaging: Xray Plain Films/CT/US/NM/MRI: chest Comments Date of Exam:12/01/19 CHEST 1 VIEW AP/PA ONLY INDICATION: Shortness of breath and dizziness. TIME OF EXAM: 12:34 PM Comparison is made with prior chest from 11/17/2019. FINDINGS: Heart is enlarged but stable. Lungs appear to be clear. No infiltrate or failure is detected. No effusion or pneumothorax is detected. IMPRESSION: No acute cardiopulmonary process is detected. Dictated on workstation # [id number] Dict: 12/01/19 1247 Trans: 12/01/19 1249 [id number] Interpreted by: DIANA MEJIA MD Electronically signed by: Departure Impression Primary Impression: Dizziness, nonspecific Additional Impression: CHRONIC RESPIRATORY FAILURE, UNSP W HYPOXIA OR HYPERCAPNIA Disposition: 01 HOME, SELF-CARE Condition: Stable Departure-Patient Inst. Decision time for Depature: 13:47 Referrals: SUZE KOROMA MD (PCP/Family) Primary Care Physician Patient Instructions: Dizziness, Nonvertigo, (DC) Add. Discharge Instructions: Call Dr Koroma to arrange a follow up appointment in 3 to 5 days. BRIAN BOWMAN DO Dec 01, 2019 12:39
--- NOTE | 2019-12-01 12:50 | Diagnostic Imaging Report ---
INDICATION: Shortness of breath and dizziness. TIME OF EXAM: 12:34 PM Comparison is made with prior chest from 11/17/2019. FINDINGS: Heart is enlarged but stable. Lungs appear to be clear. No infiltrate or failure is detected. No effusion or pneumothorax is detected. IMPRESSION: No acute cardiopulmonary process is detected. Dictated by: Dictated on workstation # [id number]
[2019-12-01 13:03] LABS: HEMOGLOBIN 11.1 G/DL (11.5-16.0); MEAN CORPUSCULAR HEMOGLOBIN 24 PG (25-34); WHITE BLOOD COUNT 8.6 10^3/uL (4.3-11.0)
[2019-12-01 13:05] LABS: MEAN CORPUSCULAR HGB CONC 28 G/DL (32-36); MEAN CORPUSCULAR VOLUME 85 FL (80-99); MEAN PLATELET VOLUME 8.5 FL (7.4-10.4); PLATELET COUNT 436 10^3/uL (130-400); RED CELL DISTRIBUTION WIDTH 17.8 % (10.0-14.5)
[2019-12-01 13:07] LABS: BASOPHILS % (AUTO) 0 % (0-10); EOSINOPHILS % (AUTO) 0 % (0-10); HEMATOCRIT 39 % (35-52); LYMPHOCYTES # (AUTO) 0.1 X 10^3 (1.0-4.0); LYMPHOCYTES % (AUTO) 1 % (12-44); MONOCYTES # (AUTO) 0.1 X 10^3 (0.0-1.0); MONOCYTES % (AUTO) 1 % (0-12); NEUTROPHILS # (AUTO) 8.4 X 10^3 (1.8-7.8); NEUTROPHILS % (AUTO) 98 % (42-75)
[2019-12-01 13:23] LABS: ALANINE AMINOTRANSFERASE 30 U/L (0-55); ALBUMIN 3.9 GM/DL (3.2-4.5); ALKALINE PHOSPHATASE 89 U/L (40-136); BILIRUBIN,TOTAL 0.3 MG/DL (0.1-1.0); BUN/CREATININE RATIO 31; CALCIUM 9.2 MG/DL (8.5-10.1); CARBON DIOXIDE 34 MMOL/L (21-32); CHLORIDE 98 MMOL/L (98-107); GFR ESTIMATED > 60; GLUCOSE 115 MG/DL (70-105); POTASSIUM 4.2 MMOL/L (3.6-5.0); SODIUM 141 MMOL/L (135-145); TOTAL PROTEIN 7.8 GM/DL (6.4-8.2)
--- NOTE | 2019-12-01 13:30 | NUR ---
Continue to note fluctuations of declining SaO2 based on pt appearing to rest with eyes closed. The pt is lying on an ER cart with HOB 45 degree or greater and is very confined between the rails with hip and upper thigh tissue extending thru the rails bilaterally. Pt's O2 was increased to 8 L/m over the hour present as SaO2 drops to 85-87 with resting. Pt has arms partially bent and noted that with straightening of arms the SaO2 improves slightly. SaO2 probe moved to patient's forehead a central location for best readings.
[2019-12-01 13:42] LABS: BAND NEUTROPHILS 37 %; LYMPHOCYTES % (MANUAL) 1 %; MONOCYTES % (MANUAL) 0 %; NEUTROPHILS % (MANUAL) 59 %
[2019-12-01 13:43] LABS: BASOPHILS % (MANUAL) 0 %; EOSINOPHILS % (MANUAL) 0 %; HYPOCHROMASIA 1+; METAMYELOCYTES % 3 %
--- NOTE | 2019-12-01 13:45 | NUR ---
O2 has been titrated down to 5 L/m over a 30 min period. Pt maintains 93% on 5 L/m and Dr Quijano having RN change to nasal cannula to document results.
--- NOTE | 2019-12-01 14:00 | NUR ---
Pt maintaining 93 % on 5L/M on n.c. while awake. Pt was instructed in ED that she appears to have a prominence of URIEL presentation and and RN note it is documented by a compliance tester on her previous admission. explains that she will be discharged to home with plan she continues to follow up with her Dr and she will need to maintain the 5L/m per n.c. as her baseline as she needs to re-evaluates her resp baseline with her provider.
[2019-12-01 14:05] VITALS: BP 122/73
--- NOTE | 2019-12-01 14:05 | NUR ---
Pt is discharged and awaits in her room till family arrive with a vehicle, her walker, and her home O2.
--- NOTE | 2019-12-01 15:30 | NUR ---
Pt actual depart time from hospital premises when sister arrived with a van and son arrived with her portable home O2 as previous tank was empty. Pt walked using a walker thru ED bay to the vehicle close by.
== END 2019-12-01 14:05 | disposition home or self-care (01) ==
LOC: EDUNIT# 12:21 → ER FS 12:22
DX: R42 Dizziness and giddiness (principal); J96.10 Chronic respiratory failure, unspecified whether with hypoxia or hypercapnia; I10 Essential (primary) hypertension; F41.9 Anxiety disorder, unspecified; E78.00 Pure hypercholesterolemia, unspecified; E66.9 Obesity, unspecified; Z68.45 Body mass index [BMI] 70 or greater, adult; Z88.6 Allergy status to analgesic agent; Z87.891 Personal history of nicotine dependence; Z82.49 Family history of ischemic heart disease and other diseases of the circulatory system; Z79.01 Long term (current) use of anticoagulants
CPT/HCPCS: 36415; 71045; 80053; 85007; 85027

== ENCOUNTER 2020-07-03 19:30 | Emergency (ER) | payer MEDICARE, MEDICAID ==
[~2020-07-03] VITALS: Ht 152.4 cm; Wt 227.2 kg
[~2020-07-03 19:30] MED LIST changes: -ALPR0.254 PO
[2020-07-03 20:13] LABS: HEMATOCRIT 35 % (35-52); MEAN CORPUSCULAR HEMOGLOBIN 25 PG (25-34); MEAN CORPUSCULAR VOLUME 87 FL (80-99); WHITE BLOOD COUNT 9.8 10^3/uL (4.3-11.0)
[2020-07-03 20:14] LABS: BASOPHILS % (AUTO) 0 % (0-10); EOSINOPHILS % (AUTO) 0 % (0-10); LYMPHOCYTES # (AUTO) 0.8 X 10^3 (1.0-4.0); LYMPHOCYTES % (AUTO) 8 % (12-44); MEAN CORPUSCULAR HGB CONC 29 G/DL (32-36); MEAN PLATELET VOLUME 8.6 FL (7.4-10.4); MONOCYTES # (AUTO) 0.4 X 10^3 (0.0-1.0); MONOCYTES % (AUTO) 5 % (0-12); NEUTROPHILS # (AUTO) 8.5 X 10^3 (1.8-7.8); NEUTROPHILS % (AUTO) 87 % (42-75); PLATELET COUNT 340 10^3/uL (130-400)
[2020-07-03 20:20] LABS: ABG BASE EXCESS 15.3 MMOL/L (-2.5-2.5); ABG OXYGEN SATURATION 94 % (94-100); ABG PH 7.39 (7.37-7.43); ABG PO2 70 MMHG (79-93)
[2020-07-03 20:21] LABS: PATIENT TEMP 36.8
[2020-07-03 20:22] LABS: ABG PCO2 72 MMHG (35-45)
[2020-07-03 20:24] LABS: VENTILATOR NO
[2020-07-03 20:29] LABS: ALANINE AMINOTRANSFERASE 10 U/L (0-55); ALKALINE PHOSPHATASE 82 U/L (40-136); BILIRUBIN,TOTAL 0.2 MG/DL (0.1-1.0); BUN/CREATININE RATIO 45; CALCIUM 8.9 MG/DL (8.5-10.1); CARBON DIOXIDE 37 MMOL/L (21-32); CHLORIDE 98 MMOL/L (98-107); CREATININE SERUM 0.62 MG/DL (0.60-1.30); GFR ESTIMATED > 60; GLUCOSE 135 MG/DL (70-105); POTASSIUM 4.1 MMOL/L (3.6-5.0); SODIUM 140 MMOL/L (135-145)
[2020-07-03 20:30] LABS: ALBUMIN 3.8 GM/DL (3.2-4.5); TOTAL PROTEIN 7.3 GM/DL (6.4-8.2)
[2020-07-03] MEDS ORDERED: FUROSEMIDE 40 MG/4 ML INJ (LASIX) IVP ONE (20:30)
--- NOTE | 2020-07-03 20:31 | ED General ---
General Chief Complaint: Respiratory Problems Stated Complaint: SOB Nursing Triage Note: PT TO ROOM [facility] WITH C/O SOB. PT REPORTS COPD, CHF, AND WEARS HOME O2 AT 3LPM. PT REPORTS SHE HAS BEEN USING 4LPM LAST WEDNESDAY. PT REPORTS TAKING AN EXTRA LASIX BECAUSE SHE HAD BEEN RETAINING FLUIDS. Nursing Sepsis Screen: No Definite Risk Source of Information: Patient History of Present Illness Date Seen by Provider: Jul 03, 2020 Time Seen by Provider: 20:00 Initial Comments Patient is a 59-year-old female with history of COPD, congestive heart failure, morbid obesity who is supplemental oxygen dependent who presents with increased shortness of breath over the past several days. Patient reports increased oxygen consumption requiring an additional liter of oxygen at rest and experiencing mild to moderate dyspnea with exertion. Patient states she has a pulse oximeter monitor at home and notes that her O2 saturation drops to the upper 70s with minimal exertion. She also reports increased peripheral edema and states that she has gained approximately 30 pounds of additional weight in the past 3 months. She has i doubled her diuretic dose in the past 3 days and has lost an additional 2.8 pounds. In the past she has previously required hospitalization for aqua pheresis in [place]. Patient denies chest pain, pa lpitations, fever, cough, sore throat. No extremity pain. No history of DVT or PE. No abdominal pain, nausea vomiting diarrhea. No urinary frequency urgency or dysuria. No other acute symptoms or complaints. Timing/Duration: 4-6 Hours, 1 Week Severity: Moderate Modifying Factors: improves with Other Associated Systoms: Other Allergies and Home Medications Allergies Coded Allergies: ibuprofen (Unverified Allergy, Unknown, 09/06/14) Home Medications ALPRAZolam 0.25 Mg Tablet, 0.25 MG PO DAILY PRN for TREMORS, (Reported) Albuterol/Ipratropium 4 Gm Aero, 1 PUFF IH Q6H Prescribed by: GAIL MORENO on 11/20/19 1429 Allopurinol 300 Mg Tablet, 300 MG PO DAILY, (Reported) Apixaban 5 Mg Tablet, 5 MG PO BID, (Reported) Atorvastatin Calcium 40 Mg Tablet, 40 MG PO DAILY, (Reported) Cholecalciferol (Vitamin D3) 1,250 Mcg Capsule, 1,250 MCG PO WED, (Reported) Fluticasone/Salmeterol 12 Gm Hfa.aer.ad, 2 PUFF IH BID Prescribed by: GAIL MORENO on 11/20/191428 Furosemide 40 Mg Tablet, 40 MG PO DAILY Prescribed by: GAIL MORNEO on 11/20/191428 Levothyroxine Sodium 25 Mcg Tablet, 25 MCG PO DAILY, (Reported) Metoprolol Succinate 50 Mg Tab.er.24h, 50 MG PO DAILY, (Reported) Mirabegron 25 Mg Tab.er.24h, 25 MG PO DAILY, (Reported) Multivitamin 1 Each Tablet, 1 EACH PO DAILY, (Reported) Oxycodone HCl/Acetaminophen 1 Each Tablet, 1 EA PO Q6H PRN for PAIN-MODERATE (5- 7), (Reported) Potassium Chloride 20 Meq Tab.er.prt, 20 MEQ PO DAILY@0900 Prescribed by: GAIL MORENO on 11/20/191428 Venlafaxine HCl 150 Mg Cap.er.24h, 150 MG PO HS, (Reported) Patient Home Medication List Home Medication List Reviewed: Yes Review of Systems Review of Systems Constitutional: see HPI EENTM: see HPI Respiratory: see HPI Cardiovascular: see HPI Gastrointestinal: see HPI Genitourinary: see HPI Musculoskeletal: see HPI Skin: see HPI Psychiatric/Neurological: See HPI Hematologic/Lymphatic: See HPI Immunological/Allergic: see HPI All Other Systems Reviewed Negative Unless Noted: Yes Past Nllimnx-Ywxpzu-Sfcyfe Hx Past Med/Social Hx: Reviewed Nursing Past Med/Soc Hx Patient Social History Alcohol Use: Denies Use Smoking Status: Former Smoker Former Smoker, Quit: Jan 03, 2017 2nd Hand Smoke Exposure: No Recent Infectious Disease Expo: No Recent Hopitalizations: No Seasonal Allergies Seasonal Allergies: No Past Medical History Surgeries: Yes (gastric sleeve) Section, Tubal Ligation Respiratory: Yes (Chronic O2 dep, denies URIEL by test result) Asthma, COPD Currently Using CPAP: No Currently Using BIPAP: No Cardiac: Yes Atrial Fibrillation, Cardiomyopathy, Hypertension Neurological: No Neuropathy 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 Disorders: No Female 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 Disorders: Denies [employer] LE[employer] History: Tubal Ligation Sexually Transmitted Disease: No HIV/AIDS: No Genitourinary: Yes UTI-Chronic Gastrointestinal: No Polyps Musculoskeletal: Yes Chronic Back Pain Endocrine: No HEENT: No Cancer: No Psychosocial: Yes Anxiety Integumentary: Yes (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, recent abscess surgery by Dr Strong) Recent Skin Changes Blood Disorders: No Family Medical History Cardiovascular disease 19 MOTHER Diabetes mellitus 19 FATHER 19 MOTHER G8 BROTHER G8 BROTHER G8 SISTER G8 SISTER FH: tremor 19 FATHER G8 SISTER Hypertension 19 FATHER G8 BROTHER G8 BROTHER G8 BROTHER G8 SISTER G8 SISTER Myocardial infarction 19 MOTHER G8 SISTER No Pertinent Family Hx Physical Exam Vital Signs Vital Signs - First Documented 07/03/20 19:38 Temp 36.8 Pulse 87 Resp 17 B/P (MAP) 119/72 (88) Pulse Ox 95 O2 Delivery Nasal Cannula O2 Flow Rate 3.00 Capillary Refill : Less Than 3 Seconds Height, Weight, BMI Height: 5'1.00" Weight: 452lbs. 0.0oz. [id number]; 97.00 BMI Method:Stated General Appearance: Other Eyes: Bilateral Eye Normal Inspection (Morbid obesity), Bilateral Eye PERRL, Bilateral Eye EOMI HEENT: PERRL/EOMI, Normal ENT Inspection, Pharynx Normal, Moist Mucous Membranes Neck: Full Range of Motion, Non Tender, Supple Respiratory: Decreased Breath Sounds (Secondary to habitus) Cardiovascular: Regular Rate, Rhythm, No Gallop, No JVD Gastrointestinal: Non Tender, Soft Extremity: Other (Severe lymphedema with erythroderma of bilateral lower extremities) Neurologic/Psychiatric: Alert, Oriented x3, No Motor/Sensory Deficits, market analyst II- XII Norm as Tested Skin: Normal Color Focused Exam Sepsis Stage: Ruled Out Progress/Results/Core Measures Suspected Sepsis Recent Fever Within 48 Hours: No Infection Criteria Present: None New/Unexplained Altered Menta: No Sepsis Screen: No Definite Risk SIRS Temperature: Pulse: 87 Respiratory Rate: 17 Laboratory Tests 07/03/20 19:50: White Blood Count 9.8 Blood Pressure 119 /72 Mean: 88 Laboratory Tests 07/03/20 19:50: Creatinine 0.62, Platelet Count 340, Total Bilirubin 0.2 Results/Orders Lab Results Laboratory Tests Test 07/03/20 19:50 07/03/20 20:13 Range/Units White Blood Count 9.8 4.3-11.0 10^3/uL Red Blood Count 3.95 L 4.35-5.85 10^6/uL Hemoglobin 10.0 L 11.5-16.0 G/DL Hematocrit 35 35-52 % Mean Corpuscular Volume 87 80-99 FL Mean Corpuscular Hemoglobin 25 25-34 PG Mean Corpuscular Hemoglobin Concent 29 L 32-36 G/DL Red Cell Distribution Width 16.0 H 10.0-14.5 % Platelet Count 340 130-400 10^3/uL Mean Platelet Volume 8.6 7.4-10.4 FL Immature Granulocyte % (Auto) 0 % Neutrophils (%) (Auto) 87 H 42-75 % Lymphocytes (%) (Auto) 8 L 12-44 % Monocytes (%) (Auto) 5 0-12 % Eosinophils (%) (Auto) 0 0-10 % Basophils (%) (Auto) 0 0-10 % Neutrophils # (Auto) 8.5 H 1.8-7.8 X 10^3 Lymphocytes # (Auto) 0.8 L 1.0-4.0 X 10^3 Monocytes # (Auto) 0.4 0.0-1.0 X 10^3 Eosinophils # (Auto) 0.0 0.0-0.3 10^3/uL Basophils # (Auto) 0.0 0.0-0.1 10^3/uL Immature Granulocyte # (Auto) 0.0 0.0-0.1 10^3/uL Neutrophils % (Manual) 83 % Lymphocytes % (Manual) 9 % Monocytes % (Manual) 5 % Band Neutrophils 3 % Hypochromasia MODERATE Sodium Level 140 135-145 MMOL/L Potassium Level 4.1 3.6-5.0 MMOL/L Chloride Level 98 98-107 MMOL/L Carbon Dioxide Level 37 H 21-32 MMOL/L Anion Gap 5 5-14 MMOL/L Blood Urea Nitrogen 28 H 7-18 MG/DL Creatinine 0.62 0.60-1.30 MG/DL Estimat Glomerular Filtration Rate > 60 BUN/Creatinine Ratio 45 Glucose Level 135 H 70-105 MG/DL Calcium Level 8.9 8.5-10.1 MG/DL Corrected Calcium 9.1 8.5-10.1 MG/DL Total Bilirubin 0.2 0.1-1.0 MG/DL Aspartate Amino Transf (AST/SGOT) 13 5-34 U/L Alanine Aminotransferase (ALT/SGPT) 10 0-55 U/L Alkaline Phosphatase 82 40-136 U/L Troponin I < 0.30 <0.30 NG/ML Pro-B-Type Natriuretic Peptide 207.1 H <75.0 PG/ML Total Protein 7.3 6.4-8.2 GM/DL Albumin 3.8 3.2-4.5 GM/DL Blood Gas Puncture Site R RADIAL Blood Gas Patient Temperature 36.8 Arterial Blood pH 7.39 7.37-7.43 Arterial Blood Partial Pressure CO2 72 *H 35-45 MMHG Arterial Blood Partial Pressure O2 70 L 79-93 MMHG Arterial Blood HCO3 44 *H 23-27 MMOL/L Arterial Blood Total CO2 46.0 H 21.0-31.0 MMOL/L Arterial Blood Oxygen Saturation 94 94-100 % Arterial Blood Base Excess 15.3 H -2.5-2.5 MMOL/L Mickey Test NA Blood Gas Ventilator Setting NO Blood Gas Inspired Oxygen 4L O2, NC My Orders Orders - STU BRO DO Cbc With Automated Diff (07/03/20 19:57) Comprehensive Metabolic Panel (07/03/20 19:57) Troponin I Fs (07/03/20 19:57) Probnp Fs (07/03/20 19:57) Chest 1 View Ap/Pa Only (07/03/20 19:57) Ekg-Prn For Chest Pain Or Rhyt (07/03/20 19:57) Arterial Blood Gas (07/03/20 19:58) Manual Differential (07/03/20 19:50) Furosemide Tablet (Lasix Tablet) (07/03/20 20:45) Furosemide Tablet (Lasix Tablet) (07/03/20 20:38) Furosemide Tablet (Lasix Tablet) (07/03/20 22:30) Medications Given in ED Current Medications Medications Dose Ordered Sig/Christal Route Start Time Stop Time Status Last Admin Dose Admin Furosemide 40 mg ONCE ONCE PO 07/03/20 22:30 07/03/20 22:31 DC 07/03/20 22:22 40 MG Furosemide 80 mg ONCE ONCE PO 07/03/20 20:45 07/03/20 20:46 DC 07/03/20 20:46 80 MG Vital Signs/I&O 07/03/20 19:38 Temp 36.8 Pulse 87 Resp 17 B/P (MAP) 119/72 (88) Pulse Ox 95 O2 Delivery Nasal Cannula O2 Flow Rate 3.00 Capillary Refill : Less Than 3 Seconds Blood Pressure Mean: 88 Departure Communication (Admissions) EKG: Normal sinus rhythm. Chest x-ray: PVC with interstitial edema and pulmonary opacities per radiology report. Patient diuresed greater than 1000 mL with improved breathing. She is able to stand and walk short distances and maintain an O2 saturation of greater than 92%. She is not hypoxic rest or when supine. Given patient's response, I think it is reasonable to continue diuresis as an outpatient. I will place her on 80 mg twice daily with instructions to check daily weights and to recheck labs in in 4 days with her PCP. Return precautions reviewed. Patient verbalizes understanding agreement discharge instructions prior to departure. Impression Primary Impression: Congestive heart failure Disposition: HOME, SELF-CARE Condition: Stable Departure-Patient Inst. Decision time for Depature: 23:28 Referrals: SELFSUZE MD (PCP/Family) Primary Care Physician Patient Instructions: CHF Add. Discharge Instructions: Please increase Lasix from 40 mg daily to 80 mg twice daily for the next 3 days. Increase potassium chloride to 20 mEq twice daily. Continue to measure daily weights and follow-up with your PCP on Wednesday to recheck CBC chemistry and BNP level. Return to the ED if new or worsening symptoms. All discharge instructions reviewed with patient and/or family. Voiced understanding. STU BRO DO Jul 03, 2020 20:31
[2020-07-03 20:35] LABS: BAND NEUTROPHILS 3 %; HYPOCHROMASIA MODERATE; LYMPHOCYTES % (MANUAL) 9 %; MONOCYTES % (MANUAL) 5 %; NEUTROPHILS % (MANUAL) 83 %
--- NOTE | 2020-07-03 20:36 | Diagnostic Imaging Report ---
EXAMINATION: Chest 1 view HISTORY: Shortness of breath COMPARISON: Chest radiograph 12/01/2019 FINDINGS: Stable enlargement of the cardiac silhouette with findings of pulmonary vascular congestion. Mild interstitial opacities are both lungs. No pleural effusion or pneumothorax. The osseous structures are intact. IMPRESSION: 1. Cardiomegaly and pulmonary vascular congestion with mild interstitial opacities throughout both lungs suggestive of pulmonary edema or atypical infection in the appropriate clinical setting. Dictated by: Dictated on workstation # [id number]
[2020-07-03] MEDS ORDERED: FUROSEMIDE 20 MG (LASIX) TAB ONE (20:38)
[2020-07-03] MEDS ORDERED: FUROSEMIDE 20 MG (LASIX) TAB PO ONE ×2 (20:45→22:30)
[2020-07-04 00:25] VITALS: BP 116/66
== END 2020-07-04 00:25 | disposition home or self-care (01) ==
LOC: EDUNIT# 19:30 → ER FS 19:31
DX: I11.0 Hypertensive heart disease with heart failure (principal); I50.9 Heart failure, unspecified; I48.91 Unspecified atrial fibrillation; F41.9 Anxiety disorder, unspecified; E66.01 Morbid (severe) obesity due to excess calories; J44.9 Chronic obstructive pulmonary disease, unspecified; Z87.891 Personal history of nicotine dependence; Z99.81 Dependence on supplemental oxygen; Z86.14 Personal history of Methicillin resistant Staphylococcus aureus infection; Z79.01 Long term (current) use of anticoagulants; Z79.51 Long term (current) use of inhaled steroids; Z79.890 Hormone replacement therapy; Z88.6 Allergy status to analgesic agent
CPT/HCPCS: 36415; 71045; 80053; 82805; 83880; 84484; 85007; 85027; 93005

== ENCOUNTER → 2020-08-02 | Outpatient (CLI) | payer MEDICARE, MEDICAID ==
[2020-08-02 13:40] LABS: HEMATOCRIT 36 % (35-52); HEMOGLOBIN 10.5 G/DL (11.5-16.0); MEAN CORPUSCULAR HEMOGLOBIN 26 PG (25-34); MEAN CORPUSCULAR HGB CONC 30 G/DL (32-36); MEAN CORPUSCULAR VOLUME 87 FL (80-99); MEAN PLATELET VOLUME 8.9 FL (7.4-10.4); PLATELET COUNT 341 10^3/uL (130-400); WHITE BLOOD COUNT 7.8 10^3/uL (4.3-11.0)
[2020-08-02 13:41] LABS: BASOPHILS % (AUTO) 1 % (0-10); EOSINOPHILS # (AUTO) 0.2 10^3/uL (0.0-0.3); EOSINOPHILS % (AUTO) 3 % (0-10); LYMPHOCYTES # (AUTO) 0.7 X 10^3 (1.0-4.0); LYMPHOCYTES % (AUTO) 9 % (12-44); MONOCYTES # (AUTO) 0.4 X 10^3 (0.0-1.0); MONOCYTES % (AUTO) 5 % (0-12); NEUTROPHILS # (AUTO) 6.4 X 10^3 (1.8-7.8); NEUTROPHILS % (AUTO) 82 % (42-75)
[2020-08-02 14:14] LABS: ALANINE AMINOTRANSFERASE 13 U/L (0-55); ALBUMIN 3.7 GM/DL (3.2-4.5); ALKALINE PHOSPHATASE 84 U/L (40-136); BILIRUBIN,TOTAL 0.2 MG/DL (0.1-1.0); BUN/CREATININE RATIO 39; CALCIUM 9.1 MG/DL (8.5-10.1); CARBON DIOXIDE 37 MMOL/L (21-32); CHLORIDE 96 MMOL/L (98-107); CREATININE SERUM 0.54 MG/DL (0.60-1.30); GFR ESTIMATED > 60; GLUCOSE 115 MG/DL (70-105); POTASSIUM 4.1 MMOL/L (3.6-5.0); SODIUM 140 MMOL/L (135-145); TOTAL PROTEIN 7.5 GM/DL (6.4-8.2)
== END ==
LOC: LAB FS 13:30
PROVIDERS: ATTEND Family Medicine
DX: I11.0 Hypertensive heart disease with heart failure (principal); I50.9 Heart failure, unspecified; I48.91 Unspecified atrial fibrillation; E66.01 Morbid (severe) obesity due to excess calories
CPT/HCPCS: 36415; 80053; 83880; 85025

== ENCOUNTER 2020-08-31 14:15 | Emergency (ER) | payer MEDICARE, MEDICAID ==
[2020-08-31 14:44] LABS: HEMATOCRIT 35 % (35-52); HEMOGLOBIN 9.8 G/DL (11.5-16.0); MEAN CORPUSCULAR HEMOGLOBIN 25 PG (25-34); MEAN CORPUSCULAR HGB CONC 28 G/DL (32-36); MEAN CORPUSCULAR VOLUME 91 FL (80-99); WHITE BLOOD COUNT 8.2 10^3/uL (4.3-11.0)
[2020-08-31 14:45] LABS: BASOPHILS % (AUTO) 0 % (0-10); EOSINOPHILS # (AUTO) 0.1 10^3/uL (0.0-0.3); EOSINOPHILS % (AUTO) 2 % (0-10); LYMPHOCYTES # (AUTO) 0.5 X 10^3 (1.0-4.0); LYMPHOCYTES % (AUTO) 6 % (12-44); MEAN PLATELET VOLUME 8.2 FL (7.4-10.4); MONOCYTES # (AUTO) 0.4 X 10^3 (0.0-1.0); MONOCYTES % (AUTO) 5 % (0-12); NEUTROPHILS # (AUTO) 7.2 X 10^3 (1.8-7.8); NEUTROPHILS % (AUTO) 88 % (42-75); PLATELET COUNT 286 10^3/uL (130-400)
--- NOTE | 2020-08-31 14:48 | ED General ---
General Chief Complaint: Respiratory Problems Stated Complaint: SOB Nursing Triage Note: Brought in by ems for low O2 sats. Does wear oxygen at home and states over the past few days she has turned it up to 5L nc to keep her O2 sats up. Keeping a surgical mask on over her nasal cannula helps keep her oxygen saturation up. Normally wears oxygen at 3L. Patient states she does not feel bad or short of breath but is concerned that her oxygen keeps dropping. Nursing Sepsis Screen: No Definite Risk Source of Information: Patient, EMS, Old Records History of Present Illness Date Seen by Provider: August 31, 2020 Time Seen by Provider: 14:15 Initial Comments 60 yo female presenting by EMS from home with concerns that she has had her oxygen levels dropping since August 29. She has been increasing her oxygen from 3 lpm to help with her oxygen saturations. She felt "funny" and was not sure what was causing it and finally checked her oxygen saturation and it was in the 70s. Wednesday she was still having trouble trying to keep her oxygen saturation up over 90% so she kept increasing her Oxygen at home until she reached the max at 5 Lpm and she also put a surgical mask over her face and the nasal cannula to help the level go up. She had called in to the clinic about her oxygen and reports they had told her to try doing a breathing treatment. However, she felt too short of breath to do the treatment. Today she called urgent care about her symptoms to see if they thought she needed to do other treatments or what she should do next and she reports they told her to call 911 to have EMS bring her to the ED. She states she feels fine but when she checks her oxygen level she has trouble keeping it up at home. She was here in the ED at end of June and had excess weight gain and diuresed in the ED with lasix and was doing better so was sent home on increased Lasix for 3 days. She reports [facility] has been monitoring her weights and she has been staying stable on her weight within 2 pounds each day. She denies any increase in cough, fever, chills. She has had some sinus drainage and cough in the mornings but not any more than usual for her. She follows with Dr. Rouse with Cardiology from [facility], but has not seen him since last fall and was told she did not have to come back for a year. Timing/Duration: 2-3 Days, Getting Worse Associated Systoms: No Chest Pain, No Cough, No Diaphoresis, No Fever/Chills, No Headaches, No Loss of Appetite, No Malaise, No Nausea/Vomiting, No Rash, No Seizure, No Shortness of Air (denies feeling short of breath but has been checking oxygen level and having to increase her O2 at home to keep her sats up), No Syncope, No Weakness Allergies and Home Medications Allergies Coded Allergies: ibuprofen (Unverified Allergy, Unknown, 09/06/14) Home Medications ALPRAZolam 0.25 Mg Tablet, 0.25 MG PO DAILY PRN for TREMORS, (Reported) Albuterol/Ipratropium 4 Gm Aero, 1 PUFF IH Q6H Prescribed by: GAIL MORENO on 11/20/191428 Allopurinol 300 Mg Tablet, 300 MG PO DAILY, (Reported) Apixaban 5 Mg Tablet, 5 MG PO BID, (Reported) Atorvastatin Calcium 40 Mg Tablet, 40 MG PO DAILY, (Reported) Cholecalciferol (Vitamin D3) 1,250 Mcg Capsule, 1,250 MCG PO WED, (Reported) Fluticasone/Salmeterol 12 Gm Hfa.aer.ad, 2 PUFF IH BID Prescribed by: GAIL MORENO on 11/20/191428 Furosemide 40 Mg Tablet, 40 MG PO DAILY Prescribed by: GAIL MORENO on 11/20/191428 Levothyroxine Sodium 25 Mcg Tablet, 25 MCG PO DAILY, (Reported) Metoprolol Succinate 50 Mg Tab.er.24h, 50 MG PO DAILY, (Reported) Mirabegron 25 Mg Tab.er.24h, 25 MG PO DAILY, (Reported) Multivitamin 1 Each Tablet, 1 EACH PO DAILY, (Reported) Oxycodone HCl/Acetaminophen 1 Each Tablet, 1 EA PO Q6H PRN for PAIN-MODERATE (5- 7), (Reported) Potassium Chloride 20 Meq Tab.er.prt, 20 MEQ PO DAILY@0900 Prescribed by: GAIL MORENO on 11/20/191428 Venlafaxine HCl 150 Mg Cap.er.24h, 150 MG PO HS, (Reported) Patient Home Medication List Home Medication List Reviewed: Yes Review of Systems Review of Systems Constitutional: No chills, No fever EENTM: nose congestion (sinus drainage/congestion) Respiratory: see HPI Cardiovascular: No chest pain; edema (chronic and no worse than usual) Gastrointestinal: no symptoms reported Genitourinary: no symptoms reported Musculoskeletal: no symptoms reported Skin: no symptoms reported Psychiatric/Neurological: No Symptoms Reported Past Ikpwxvm-Yiodey-Qcxwpr Hx Past Med/Social Hx: Reviewed Nursing Past Med/Soc Hx Patient Social History Alcohol Use: Denies Use Smoking Status: Former Smoker Former Smoker, Quit: Jan 03, 2017 2nd Hand Smoke Exposure: No Recent Infectious Disease Expo: No Recent Hopitalizations: No Seasonal Allergies Seasonal Allergies: No Past Medical History Surgeries: Yes (gastric sleeve) Section, Tubal Ligation Respiratory: Yes (Chronic O2 dep, denies URIEL by test result) Asthma, COPD Currently Using CPAP: No Currently Using BIPAP: No Cardiac: Yes Atrial Fibrillation, Cardiomyopathy, Hypertension Neurological: No Neuropathy 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 Disorders: No Female 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 Disorders: Denies 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 Sexually Transmitted Disease: No HIV/AIDS: No Genitourinary: Yes UTI-Chronic Gastrointestinal: No Polyps Musculoskeletal: Yes Chronic Back Pain Endocrine: No HEENT: No Cancer: No Psychosocial: Yes Anxiety Integumentary: Yes (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, recent abscess surgery by Dr Strong) Recent Skin Changes Blood Disorders: No Family Medical History Cardiovascular disease 19 MOTHER Diabetes mellitus 19 FATHER 19 MOTHER G8 BROTHER G8 BROTHER G8 SISTER G8 SISTER FH: tremor 19 FATHER G8 SISTER Hypertension 19 FATHER G8 BROTHER G8 BROTHER G8 BROTHER G8 SISTER G8 SISTER Myocardial infarction 19 MOTHER G8 SISTER No Pertinent Family Hx Physical Exam Vital Signs Vital Signs - First Documented 08/31/20 14:20 Temp 37.3 Pulse 75 Resp 16 B/P (MAP) 162/73 (102) Pulse Ox 96 Capillary Refill : Less Than 3 Seconds Height, Weight, BMI Height: 5'1.00" Weight: 452lbs. 0.0oz. [id number]; BMI Method:Stated General Appearance: No Apparent Distress, Obese (morbid obesity), Other (speaking in complete sentences without difficulty) HEENT: PERRL/EOMI, Pharynx Normal Neck: Full Range of Motion, Supple Respiratory: Chest Non Tender, No Accessory Muscle Use, No Respiratory Distress, Decreased Breath Sounds (diminished breath sounds due to body habitus) Cardiovascular: Regular Rate, Rhythm, Normal Peripheral Pulses, Other (distant heart sounds due to body habitus) Gastrointestinal: Non Tender, Soft, Other (morbidly obese abdomen limits abdominal exam) Rectal: Deferred Extremity: Normal Capillary Refill, Pedal Edema (2+ pitting edema BLE with chronic venous stasis changes to skin and scaling of skin) Neurologic/Psychiatric: Alert, Oriented x3, Normal Mood/Affect, blender snuff II-XII Norm as Tested Skin: Warm/Dry, Other (chronic venous stasis changes to skin of LE and scaling of skin) Progress/Results/Core Measures Suspected Sepsis Recent Fever Within 48 Hours: No Infection Criteria Present: None New/Unexplained Altered Menta: No Sepsis Screen: No Definite Risk SIRS Temperature: Pulse: 75 Respiratory Rate: 16 Laboratory Tests 08/31/20 14:33: White Blood Count 8.2 Blood Pressure 162 /73 Mean: 102 Laboratory Tests 08/31/20 14:33: Creatinine 0.49L, Platelet Count 286, Total Bilirubin 0.4 Results/Orders Lab Results Laboratory Tests Test 08/31/20 14:33 08/31/20 14:46 08/31/20 16:52 Range/Units White Blood Count 8.2 4.3-11.0 10^3/uL Red Blood Count 3.85 L 4.35-5.85 10^6/uL Hemoglobin 9.8 L 11.5-16.0 G/DL Hematocrit 35 35-52 % Mean Corpuscular Volume 91 80-99 FL Mean Corpuscular Hemoglobin 25 25-34 PG Mean Corpuscular Hemoglobin Concent 28 L 32-36 G/DL Red Cell Distribution Width 15.7 H 10.0-14.5 % Platelet Count 286 130-400 10^3/uL Mean Platelet Volume 8.2 7.4-10.4 FL Neutrophils (%) (Auto) 88 H 42-75 % Lymphocytes (%) (Auto) 6 L 12-44 % Monocytes (%) (Auto) 5 0-12 % Eosinophils (%) (Auto) 2 0-10 % Basophils (%) (Auto) 0 0-10 % Neutrophils # (Auto) 7.2 1.8-7.8 X 10^3 Lymphocytes # (Auto) 0.5 L 1.0-4.0 X 10^3 Monocytes # (Auto) 0.4 0.0-1.0 X 10^3 Eosinophils # (Auto) 0.1 0.0-0.3 10^3/uL Basophils # (Auto) 0.0 0.0-0.1 10^3/uL Neutrophils % (Manual) 88 % Lymphocytes % (Manual) 9 % Monocytes % (Manual) 3 % Sodium Level 139 135-145 MMOL/L Potassium Level 4.3 3.6-5.0 MMOL/L Chloride Level 94 L 98-107 MMOL/L Carbon Dioxide Level 40 H 21-32 MMOL/L Anion Gap 5 5-14 MMOL/L Blood Urea Nitrogen 21 H 7-18 MG/DL Creatinine 0.49 L 0.60-1.30 MG/DL Estimat Glomerular Filtration Rate > 60 BUN/Creatinine Ratio 43 Glucose Level 106 H 70-105 MG/DL Calcium Level 8.9 8.5-10.1 MG/DL Corrected Calcium 9.1 8.5-10.1 MG/DL Magnesium Level 2.1 1.6-2.4 MG/DL Total Bilirubin 0.4 0.1-1.0 MG/DL Aspartate Amino Transf (AST/SGOT) 14 5-34 U/L Alanine Aminotransferase (ALT/SGPT) 11 0-55 U/L Alkaline Phosphatase 78 40-136 U/L Troponin I < 0.30 <0.30 NG/ML C-Reactive Protein 5.65 H <0.50 MG/DL Pro-B-Type Natriuretic Peptide 509.6 H <75.0 PG/ML Total Protein 7.5 6.4-8.2 GM/DL Albumin 3.7 3.2-4.5 GM/DL Blood Gas Puncture Site RIGHT RADIAL Blood Gas Patient Temperature 37.3 Arterial Blood pH 7.41 7.37-7.43 Arterial Blood Partial Pressure CO2 78 *H 35-45 MMHG Arterial Blood Partial Pressure O2 56 L 79-93 MMHG Arterial Blood HCO3 49 *H 23-27 MMOL/L Arterial Blood Total CO2 51.8 H 21.0-31.0 MMOL/L Arterial Blood Oxygen Saturation 89 L 94-100 % Arterial Blood Base Excess 20.5 H -2.5-2.5 MMOL/L Mickey Test NEGATIVE Blood Gas Ventilator Setting NO Blood Gas Inspired Oxygen 4L Urine Color YELLOW Urine Clarity SLIGLTY CLOUDY Urine pH 8.0 5-9 Urine Specific [place] 1.015 L 1.016-1.022 Urine Protein NEGATIVE NEGATIVE Urine Glucose (UA) NEGATIVE NEGATIVE Urine Ketones NEGATIVE NEGATIVE Urine Nitrite NEGATIVE NEGATIVE Urine Bilirubin NEGATIVE NEGATIVE Urine Urobilinogen 0.2 < = 1.0 MG/DL Urine Leukocyte Esterase NEGATIVE NEGATIVE Urine RBC (Auto) NEGATIVE NEGATIVE Urine RBC NONE /HPF Urine WBC 2-5 /HPF Urine Squamous Epithelial Cells 2-5 /HPF Urine Crystals NONE /LPF Urine Bacteria LARGE H /HPF Urine Casts NONE /LPF Urine Mucus NEGATIVE /LPF Urine Culture Indicated YES My Orders Orders - REJI CASTAÑEDA MD Cbc With Automated Diff (08/31/20 14:36) Comprehensive Metabolic Panel (08/31/20 14:36) Chest 1 View Ap/Pa Only (08/31/20 14:36) Magnesium (08/31/20 14:36) Ekg Tracing (08/31/20 14:36) O2 (08/31/20 14:36) Ed Iv/Invasive Line Start (08/31/20 14:36) Monitor-Rhythm Ecg Trace Only (08/31/20 14:36) Crp Fs (08/31/20 14:36) Arterial Blood Gas (08/31/20 14:36) Troponin I Fs (08/31/20 14:36) Probnp Fs (08/31/20 14:36) Manual Differential (08/31/20 14:33) Albuterol/Ipra Inhalation Soln (Duoneb I (08/31/20 15:22) Svn Small Volume Nebulizer (08/31/20 15:22) Furosemide Injection (Lasix Injection) (08/31/20 16:12) Ibarra Cath (08/31/20 16:12) Ua Culture If Indicated (08/31/20 16:58) Urine Culture (08/31/20 16:52) Vital Signs/I&O 08/31/20 14:20 Temp 37.3 Pulse 75 Resp 16 B/P (MAP) 162/73 (102) Pulse Ox 96 Capillary Refill : Less Than 3 Seconds Blood Pressure Mean: 102 Progress Note #1: Progress Note Obtain basic labs, ECG, CXR, ABG. Pt maintaining oxygen saturation 93-95% on 4 L pm here in ED. Differential diagnosis includes CHF exacerbation, COPD exacerbation, pneumonia, pleural effusion, lung mass, equipment failure, anemia, Progress Note #2: Progress Note labs show stable CBC without elevation of WBC count and chronic anemia with stable Hgb 9.8. Chemistry appears similar to prior testing other than she has mild bump in CO2 to 40 where she usually runs around 37, proBNP up to 506 where as previously she has been in 100-200 range. Troponin is <0.3. ABG shows normal pH of 7.41, pCO2 of 78, pO2 56, HCO3 of 49 on 4 Lpm and O2 sat 89%. CXR shows continued pulmonary vascular congestion similar to prior films, most recently from June 2020 ED visit. No infiltrate or effusion seen. This is likely a combination of partially compensated COPD and CHF with CO2 retention and some fluid retention but pt reports weight have been stable at home. She requests [facility] for admit when discussing treatment plan of helping to drop her CO2 and diurese patient. 1523 page placed through [facility] manufacturing supervisor 2nd shift/bed placement to reach hospitalist for admit. 1558 Dr. Jeremy Kamara called back from [facility] and after review of case with him he accepted pt for transfer. He requested some lasix prior to transfer and to clarify her code status and if DNR to have documentation of that in the chart prior to transfer as well. When discussed with pt she confirms she is a full code status. When mentioning the lasix she requested a catheter so she would not be having to urinate or use a bed tan in the ambulance on way to [place]. ECG Initial ECG Impression Date: August 31, 2020 Initial ECG Impression Time: 14:42 Initial ECG Rate: 65 Initial ECG Rhythm: Normal Sinus Initial ECG Comparisson: Unchanged Comment Sinus rhythm with a heart rate of 65 bpm. [place] interval 178 ms. Right axis deviation. Low voltage in the precordial leads. QT interval 437 ms with a QTc interval [address] elevation. Appears similar to prior tracings in the system. Diagnostic Imaging Diagonstic Imaging: Xray Plain Films/CT/US/NM/MRI: chest Comments NAME: ROSIE NINO MED REC#: [id number] PT STATUS: REG ER : 1960 PHYSICIAN: REJI CASTAÑEDA MD ADMIT DATE: 08/31/20/ER FS Draft Date of Exam:08/31/20 CHEST 1 VIEW AP/PA ONLY Portable erect AP chest at 2:31. Indication: Shortness of breath The cardiomegaly and the mild central pulmonary congestion noted on the prior exam of 07/03/2020 are again evident and essentially no different. There is still no consolidated pneumonia identified nor is there any evidence for significant pleural effusion. The mediastinum is not widened. The osseous structures are intact. Impression: There is persisting cardiomegaly and mild pulmonary congestion. When compared to the prior study there does not appear to have been any significant change. Dictated on workstation # [id number] Dict: 08/31/20 1448 Trans: 08/31/20 1457 CV [id number] Interpreted by: BEVERLEY DOLAN MD Electronically signed by: Reviewed: Reviewed by Me Departure Impression Primary Impression: Hypercarbia Additional Impressions: COPD with exacerbation CHF exacerbation Qualified Codes: I50.9 - Heart failure, unspecified Hypoxia Disposition: T-[facility] Condition: Stable Transfer Transfer Reason: Patient preference Time Spoke to Accepting Phy: 15:58 Transfer Progress Notes 1523 page placed through [facility] manufacturing supervisor 2nd shift/bed placement to reach hospitalist for admit. 1558 Dr. Jeremy Kamara called back from [facility] and after review of case with him he accepted pt for transfer. He requested some lasix prior to transfer and to clarify her code status and if DNR to have documentation of that in the chart prior to transfer as well. When discussed with pt she confirms she is a full code status. When mentioning the lasix she requested a catheter so she would not be having to urinate or use a bed tan in the ambulance on way to [place]. Transfer Facility: [facility] Method of Transfer: EMS Departure-Patient Inst. Referrals: SUZE KRISHNAMURTHY MD (PCP/Family) Primary Care Physician REJI CASTAÑEDA MD August 31, 2020 14:48
[2020-08-31 14:56] LABS: ABG BASE EXCESS 20.5 MMOL/L (-2.5-2.5); ABG OXYGEN SATURATION 89 % (94-100); ABG PH 7.41 (7.37-7.43); ABG PO2 56 MMHG (79-93); ABG TCO2 51.8 MMOL/L (21.0-31.0); ALLENS TEST NEGATIVE; INSPIRED O2 4L; PATIENT TEMP 37.3; VENTILATOR NO
[2020-08-31 14:57] LABS: ABG PCO2 78 MMHG (35-45)
--- NOTE | 2020-08-31 14:57 | Diagnostic Imaging Report ---
Portable erect AP chest at 2:31. Indication: Shortness of breath The cardiomegaly and the mild central pulmonary congestion noted on the prior exam of 07/03/2020 are again evident and essentially no different. There is still no consolidated pneumonia identified nor is there any evidence for significant pleural effusion. The mediastinum is not widened. The osseous structures are intact. Impression: There is persistent cardiomegaly and mild pulmonary congestion. When compared to the prior study there does not appear to have been any significant change. Dictated by: Dictated on workstation # [id number]
[2020-08-31 14:59] LABS: ALANINE AMINOTRANSFERASE 11 U/L (0-55); ALKALINE PHOSPHATASE 78 U/L (40-136); BILIRUBIN,TOTAL 0.4 MG/DL (0.1-1.0); BUN/CREATININE RATIO 43; CALCIUM 8.9 MG/DL (8.5-10.1); CARBON DIOXIDE 40 MMOL/L (21-32); CHLORIDE 94 MMOL/L (98-107); CREATININE SERUM 0.49 MG/DL (0.60-1.30); GFR ESTIMATED > 60; GLUCOSE 106 MG/DL (70-105); MAGNESIUM 2.1 MG/DL (1.6-2.4); POTASSIUM 4.3 MMOL/L (3.6-5.0); SODIUM 139 MMOL/L (135-145); TOTAL PROTEIN 7.5 GM/DL (6.4-8.2)
[2020-08-31 15:00] LABS: ALBUMIN 3.7 GM/DL (3.2-4.5)
[2020-08-31 15:03] LABS: LYMPHOCYTES % (MANUAL) 9 %; MONOCYTES % (MANUAL) 3 %; NEUTROPHILS % (MANUAL) 88 %
[2020-08-31] MEDS ORDERED: RT-ALBUTEROL/IPRATROPIUM 3 ML (DUONEB) VIAL INH STA (15:22)
[2020-08-31] MEDS ORDERED: FUROSEMIDE 40 MG/4 ML INJ (LASIX) IVP STA (16:12)
[2020-08-31 17:04] LABS: BILIRUBIN,URINE NEGATIVE (NEGATIVE); CLARITY,URINE SLIGLTY CLOUDY; COLOR,URINE YELLOW; GLUCOSE, URINE (UA) NEGATIVE (NEGATIVE); KETONES,URINE NEGATIVE (NEGATIVE); LEUKOCYTE ESTERASE ,URINE NEGATIVE (NEGATIVE); NITRITE,URINE NEGATIVE (NEGATIVE); PROTEIN,URINE NEGATIVE (NEGATIVE)
[2020-08-31 17:05] VITALS: BP 139/60
[2020-08-31 17:05] LABS: BACTERIA,URINE LARGE /HPF
== END 2020-08-31 17:05 | disposition short-term general hospital (02) ==
LOC: EDUNIT# 14:15 → ER FS 14:18
DX: I11.0 Hypertensive heart disease with heart failure (principal); I50.9 Heart failure, unspecified; J44.1 Chronic obstructive pulmonary disease with (acute) exacerbation; I87.8 Other specified disorders of veins; R23.4 Changes in skin texture; I48.91 Unspecified atrial fibrillation; I42.9 Cardiomyopathy, unspecified; G89.29 Other chronic pain; M54.9 Dorsalgia, unspecified; F41.9 Anxiety disorder, unspecified; E66.01 Morbid (severe) obesity due to excess calories; Z99.81 Dependence on supplemental oxygen; Z87.891 Personal history of nicotine dependence; Z79.01 Long term (current) use of anticoagulants; Z79.51 Long term (current) use of inhaled steroids; Z79.891 Long term (current) use of opiate analgesic; Z79.899 Other long term (current) drug therapy
CPT/HCPCS: 36415; 51702; 71045; 80053; 81000; 82805; 83735; 83880; 84484; 85007; 85027; 86141; 87077; 87088; 87186; 93005; 93041

== ENCOUNTER → 2020-09-13 | Outpatient (CLI) | payer MEDICARE, MEDICAID ==
[2020-09-13 12:39] LABS: HEMATOCRIT 40 % (35-52); HEMOGLOBIN 11.7 G/DL (11.5-16.0); MEAN CORPUSCULAR HEMOGLOBIN 25 PG (25-34); MEAN CORPUSCULAR HGB CONC 29 G/DL (32-36); MEAN CORPUSCULAR VOLUME 85 FL (80-99); PLATELET COUNT 383 10^3/uL (130-400); WHITE BLOOD COUNT 10.6 10^3/uL (4.3-11.0)
[2020-09-13 12:40] LABS: BASOPHILS % (AUTO) 1 % (0-10); LYMPHOCYTES % (AUTO) 9 % (12-44); MONOCYTES % (AUTO) 5 % (0-12); NEUTROPHILS % (AUTO) 84 % (42-75)
[2020-09-13 12:41] LABS: BASOPHILS # (AUTO) 0.1 10^3/uL (0.0-0.1); EOSINOPHILS # (AUTO) 0.2 10^3/uL (0.0-0.3); EOSINOPHILS % (AUTO) 1 % (0-10); MONOCYTES # (AUTO) 0.5 X 10^3 (0.0-1.0); NEUTROPHILS # (AUTO) 8.9 X 10^3 (1.8-7.8)
[2020-09-13 13:26] LABS: BUN/CREATININE RATIO 60; CALCIUM 10.2 MG/DL (8.5-10.1); CARBON DIOXIDE 32 MMOL/L (21-32); CHLORIDE 94 MMOL/L (98-107); CREATININE SERUM 0.67 MG/DL (0.60-1.30); GFR ESTIMATED > 60; GLUCOSE 112 MG/DL (70-105); POTASSIUM 3.8 MMOL/L (3.6-5.0); SODIUM 137 MMOL/L (135-145)
[2020-09-13 13:27] LABS: ALANINE AMINOTRANSFERASE 18 U/L (0-55); ALBUMIN 4.1 GM/DL (3.2-4.5); ALKALINE PHOSPHATASE 90 U/L (40-136); BILIRUBIN,TOTAL 0.3 MG/DL (0.1-1.0); TOTAL PROTEIN 8.3 GM/DL (6.4-8.2)
== END ==
LOC: IHC 12:03
PROVIDERS: ATTEND Family Medicine
DX: I11.0 Hypertensive heart disease with heart failure (principal)
CPT/HCPCS: 80053; 83880; 85025

== ENCOUNTER → 2020-10-08 | Outpatient (CLI) | payer MEDICARE, MEDICAID ==
[~2020-10-08] MED LIST changes: -OXYC-464 PO; +OXYC1TAB15 PO
[2020-10-08 15:27] LABS: CHLORIDE 97 MMOL/L (98-107); POTASSIUM 4.3 MMOL/L (3.6-5.0); SODIUM 139 MMOL/L (135-145)
[2020-10-08 15:28] LABS: ALANINE AMINOTRANSFERASE 20 U/L (0-55); ALKALINE PHOSPHATASE 95 U/L (40-136); BILIRUBIN,TOTAL 0.2 MG/DL (0.1-1.0); BUN/CREATININE RATIO 32; CALCIUM 9.5 MG/DL (8.5-10.1); CARBON DIOXIDE 33 MMOL/L (21-32); CREATININE SERUM 0.68 MG/DL (0.60-1.30); GFR ESTIMATED > 60; GLUCOSE 110 MG/DL (70-105); TOTAL PROTEIN 7.8 GM/DL (6.4-8.2)
[2020-10-08 15:35] LABS: BASOPHILS % (AUTO) 0 % (0-10); EOSINOPHILS # (AUTO) 0.2 10^3/uL (0.0-0.3); EOSINOPHILS % (AUTO) 2 % (0-10); HEMATOCRIT 40 % (35-52); HEMOGLOBIN 11.8 G/DL (11.5-16.0); LYMPHOCYTES # (AUTO) 0.9 X 10^3 (1.0-4.0); LYMPHOCYTES % (AUTO) 9 % (12-44); MEAN CORPUSCULAR HEMOGLOBIN 25 PG (25-34); MEAN CORPUSCULAR HGB CONC 30 G/DL (32-36); MEAN CORPUSCULAR VOLUME 85 FL (80-99); MEAN PLATELET VOLUME 9.2 FL (7.4-10.4); MONOCYTES # (AUTO) 0.4 X 10^3 (0.0-1.0); MONOCYTES % (AUTO) 4 % (0-12); NEUTROPHILS # (AUTO) 8.4 X 10^3 (1.8-7.8); NEUTROPHILS % (AUTO) 84 % (42-75); PLATELET COUNT 384 10^3/uL (130-400)
== END ==
LOC: IHC 14:26
PROVIDERS: ATTEND Family Medicine
DX: I48.91 Unspecified atrial fibrillation (principal); E55.9 Vitamin D deficiency, unspecified; E03.9 Hypothyroidism, unspecified
CPT/HCPCS: 80053; 82306; 84443; 85025

== ENCOUNTER → 2020-10-22 | Outpatient (CLI) | payer MEDICARE, MEDICAID ==
[~2020-10-22] MED LIST changes: -SULF1TAB35 PO; +SULF1TAB38 PO
== END ==
LOC: IHC 11:34
PROVIDERS: ATTEND Family Medicine
DX: T46.0X5A Adverse effect of cardiac-stimulant glycosides and drugs of similar action, initial encounter (principal)
CPT/HCPCS: 80162

== ENCOUNTER → 2020-11-07 | Outpatient (CLI) | payer MEDICARE, MEDICAID | LOC: IHC 11:20 | PROVIDERS: ATTEND Family Medicine | DX: Z51.81 Encounter for therapeutic drug level monitoring (principal) | CPT/HCPCS: 80162 ==

== ENCOUNTER → 2020-11-26 | Outpatient (CLI) | payer MEDICARE, MEDICAID | LOC: LAB FS 10:04 | PROVIDERS: ATTEND Family Medicine | DX: Z01.812 Encounter for preprocedural laboratory examination (principal); Z20.822 Contact with and (suspected) exposure to COVID-19 | CPT/HCPCS: 87636 ==

== ENCOUNTER 2020-11-28 20:01 | Outpatient (CLI) | payer MEDICARE, MEDICAID | END 2020-11-29 07:30 | disposition home or self-care (01) | LOC: SLEEP 20:01 | PROVIDERS: ATTEND Family Medicine | DX: Z00.00 Encounter for general adult medical examination without abnormal findings (principal); G47.33 Obstructive sleep apnea (adult) (pediatric); G47.10 Hypersomnia, unspecified; I11.0 Hypertensive heart disease with heart failure; I50.9 Heart failure, unspecified; E66.01 Morbid (severe) obesity due to excess calories; J44.9 Chronic obstructive pulmonary disease, unspecified; I49.9 Cardiac arrhythmia, unspecified; E55.9 Vitamin D deficiency, unspecified; M51.36 Other intervertebral disc degeneration, lumbar region; E87.70 Fluid overload, unspecified; R63.4 Abnormal weight loss; Z79.899 Other long term (current) drug therapy | CPT/HCPCS: 95810 ==

== ENCOUNTER → 2021-01-07 | Outpatient (CLI) | payer MEDICARE, MEDICAID | LOC: LAB FS 10:02 | PROVIDERS: ATTEND Family Medicine | DX: Z01.812 Encounter for preprocedural laboratory examination (principal); Z20.822 Contact with and (suspected) exposure to COVID-19 | CPT/HCPCS: 87635 ==

== ENCOUNTER 2021-01-09 20:55 | Outpatient (CLI) | payer MEDICARE, MEDICAID ==
[~2021-01-09 20:55] MED LIST changes: +POTA-169 PO; -POTA20TA8 PO
[2021-01-10] MEDS ORDERED: SULF1TAB38 PO (07:50)
== END 2021-01-10 07:30 | disposition home or self-care (01) ==
LOC: SLEEP 20:55
PROVIDERS: ATTEND Family Medicine
DX: R09.02 Hypoxemia (principal); G47.10 Hypersomnia, unspecified
CPT/HCPCS: 95811

== ENCOUNTER 2021-01-10 07:27 | Emergency (ER) | payer MEDICARE, MEDICAID ==
[~2021-01-10] VITALS: Ht 152 cm; Wt 213.0 kg
[~2021-01-10 07:27] MED LIST changes: -POTA-169 PO; +POTA20TA8 PO
[2021-01-10 07:35] VITALS: BP 145/89
--- NOTE | 2021-01-10 07:48 | ED Integumentary General ---
General Chief Complaint: Skin/Wound Problems Stated Complaint: WOUNDS ON BACK OF L LEG Source: patient Exam Limitations: no limitations History of Present Illness Date Seen by Provider: Jan 10, 2021 Time Seen by Provider: 07:32 Initial Comments Here with report of concerns that the previously lanced wounds to the upper posterior left leg are now getting infected again. She states that she does feel some staying there. Apparently she did have a couple of abscesses that were ultimately opened and drained by Dr. Arcos. The wound had to be healed inside out and had been doing better. She noticed them and somebody took a picture. She was concerned so she presented to the ED. She apparently was here for sleep study and wanted to get this checked out before she went home. Denies fever chills. Denies nausea or vomiting. Not significantly tender at the sites but does note occasionally stinging when she is sitting on the wounds. Timing/Duration: yesterday, changing over time Severity: mild Associated Symptoms: No fever Allergies and Home Medications Allergies Coded Allergies: ibuprofen (Unverified Allergy, Unknown, 09/06/14) Patient Home Medication List Home Medication List Reviewed: Yes ALPRAZolam (Xanax Tablet) 0.25 Mg Tablet, 0.25 MG PO DAILY PRN for TREMORS, (Reported) Entered as Reported by: KAROL MOY on 11/12/191918 Albuterol/Ipratropium (Combivent Respimat Inhal [place]) 4 Gm Aero, 1 PUFF IH Q6H Prescribed by: GAIL MORENO on 11/20/19 1429 Allopurinol (Allopurinol) 300 Mg Tablet, 300 MG PO DAILY, (Reported) Entered as Reported by: BALA ERICKSON on 11/14/19 1154 Apixaban (Eliquis) 5 Mg Tablet, 5 MG PO BID, (Reported) Entered as Reported by: BALA ERICKSON on 11/14/19 1201 Atorvastatin Calcium (Atorvastatin Calcium) 40 Mg Tablet, 40 MG PO DAILY, (Reported) Entered as Reported by: KAROL MOY on 11/12/191918 Cholecalciferol (Vitamin D3) (Vitamin D3) 1,250 Mcg Capsule, 1,250 MCG PO WED, (Reported) Entered as Reported by: BALA ERICKSON on 11/14/19 1200 Fluticasone/Salmeterol (Advair Hfa 115-21 Mcg Inhaler) 12 Gm Hfa.aer.ad, 2 PUFF IH BID Prescribed by: GAIL MORENO on 11/20/19 142 Furosemide (Furosemide) 40 Mg Tablet, 40 MG PO DAILY Prescribed by: GAIL MORENO on 11/20/191428 Levothyroxine Sodium (Levothyroxine Sodium) 25 Mcg Tablet, 25 MCG PO DAILY, (Reported) Entered as Reported by: KAROL MYO on 11/12/191918 Metoprolol Succinate (Metoprolol Succinate) 50 Mg Tab.er.24h, 50 MG PO DAILY, (Reported) Entered as Reported by: KAROL MOY on 11/12/191918 Mirabegron (Myrbetriq) 25 Mg Tab.er.24h, 25 MG PO DAILY, (Reported) Entered as Reported by: BALA ERICKSON on 11/14/19 1201 Multivitamin (Multivitamin) 1 Each Tablet, 1 EACH PO DAILY, (Reported) Entered as Reported by: BALA ERICKSON on 11/14/19 115 Oxycodone HCl/Acetaminophen (Oxycodon-Acetaminophen 7.5-325) 1 Each Tablet, 1 EA PO Q6H PRN for PAIN-MODERATE (5-7), (Reported) Entered as Reported by: KAROL MOY on 11/12/191918 Potassium Chloride (Klor-Con M20) 20 Meq Tab.er.prt, 20 MEQ PO DAILY@0900 Prescribed by: GAIL MORENO on 11/20/191428 Venlafaxine HCl (Venlafaxine HCl ER) 150 Mg Cap.er.24h, 150 MG PO HS, (Reported) Entered as Reported by: BALA ERICKSON on 11/14/19 1154 Review of Systems Review of Systems Constitutional: see HPI; No chills, No fever Respiratory: no symptoms reported Cardiovascular: no symptoms reported Skin: see HPI; No change in color; lesions Past Wijdxer-Qybvpn-Cecsie Hx Patient Social History Tobacco Use?: No Smoking Status: Former Smoker Substance use?: No Pt feels they are or have been: No Seasonal Allergies Seasonal Allergies: No Past Medical History Surgeries: Yes (gastric sleeve) Section, Tubal Ligation Respiratory: Yes (Chronic O2 dep, denies URIEL by test result) Asthma, COPD Currently Using CPAP: No Currently Using BIPAP: No Cardiac: Yes Atrial Fibrillation, Cardiomyopathy, Hypertension Neurological: No Neuropathy 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 Disorders: No Female 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 Disorders: 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 Sexually Transmitted Disease: No HIV/AIDS: No Genitourinary: Yes UTI-Chronic Gastrointestinal: No Polyps Musculoskeletal: Yes Chronic Back Pain Endocrine: No HEENT: No Cancer: No Psychosocial: Yes Anxiety Integumentary: Yes (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, recent abscess surgery by Dr Strong) Recent Skin Changes Blood Disorders: No Family Medical History Reviewed Nursing Family Hx Cardiovascular disease 19 MOTHER Diabetes mellitus 19 FATHER 19 MOTHER G8 BROTHER G8 BROTHER G8 SISTER G8 SISTER FH: tremor 19 FATHER G8 SISTER Hypertension 19 FATHER G8 BROTHER G8 BROTHER G8 BROTHER G8 SISTER G8 SISTER Myocardial infarction 19 MOTHER G8 SISTER No Pertinent Family Hx Physical Exam Vital Signs Capillary Refill : General Appearance: WD/WN, no apparent distress Cardiovascular: regular rate, rhythm, no murmur Respiratory: lungs clear, normal breath sounds Skin: warm/dry, other (Evaluation of the left upper thigh posteriorly reveals 2 healing or healed wounds. The upper wound has skin ridge around the healing hole but no signs of infection. The lower wound appears to be healed over. I do not feel any significant abscess, induration or fluctuant area around or below wounds. There is no significant erythema around wounds.) Progress/Results/Core Measures Progress Progress Note : Progress Note Seen and evaluated. Wounds evaluated. While I do not see active infection, patient has noted some mild increased pain in the area. Given her history, we will go ahead and initiate outpatient antibiotics for a week and have her follow-up with Dr. Arcos. Discharged home with return precautions. Patient verbalized understanding of instructions and agreement with plan. Departure Impression Primary Impression: Cellulitis Qualified Codes: L03.116 - Cellulitis of left lower limb Disposition: 01 HOME, SELF-CARE Condition: Improved Departure-Patient Inst. Decision time for Depature: 07:45 Referrals: TYRELL ARCOS DO SELFSUZE MD (PCP/Family) Primary Care Physician Patient Instructions: Cellulitis (Skin Infection), Adult (DC) Add. Discharge Instructions: All discharge instructions reviewed with patient and/or family. Voiced understanding. Call Dr. Arcos's office today for appointment next week for recheck and further evaluation. You have been prescribed antibiotics to help prevent/ensure that wounds do not worsen. Right now they look like they are healing well and I do not have significant concerns about we will go ahead and treat just in case sinc e you are starting to have a little pain there. Return for worse pain, fever, increasing swelling, foul-smelling drainage or other concerns as needed. Scripts Sulfamethoxazole/Trimethoprim (Bactrim Ds Tablet) 1 Each Tablet 1 EACH PO BID, #14 TAB 0 Refills Prov: LACI NUÑEZ MD 01/10/21 Copy Copies To 1: TYRELL ARCOS DO LACI NUÑEZ MD Jan 10, 2021 07:48
[2021-01-10] MEDS ORDERED: SULF1TAB38 PO (07:50)
== END 2021-01-10 08:16 | disposition home or self-care (01) ==
LOC: EDUNIT# 07:27 → ER 07:28
DX: L03.116 Cellulitis of left lower limb (principal); I10 Essential (primary) hypertension; I48.91 Unspecified atrial fibrillation; F41.9 Anxiety disorder, unspecified; J44.9 Chronic obstructive pulmonary disease, unspecified; Z86.14 Personal history of Methicillin resistant Staphylococcus aureus infection; Z87.891 Personal history of nicotine dependence; Z99.81 Dependence on supplemental oxygen; Z79.51 Long term (current) use of inhaled steroids; Z79.01 Long term (current) use of anticoagulants
CPT/HCPCS: 99281

== ENCOUNTER 2021-02-18 17:19 | Emergency (ER) | payer MEDICARE, MEDICAID ==
[~2021-02-18] VITALS: Ht 152 cm; Wt 201.0 kg
[2021-02-18] MEDS ORDERED: NS IV 1000 ML 1,000 ML IV SCH (18:15)
[2021-02-18 18:28] LABS: BASOPHILS % (AUTO) 0 % (0-10); EOSINOPHILS % (AUTO) 1 % (0-10); HEMATOCRIT 37 % (35-52); HEMOGLOBIN 10.8 g/dL (11.5-16.0); LYMPHOCYTES % (AUTO) 5 % (12-44); MEAN CORPUSCULAR HEMOGLOBIN 25 pg (25-34); MEAN CORPUSCULAR HGB CONC 29 g/dL (32-36); MEAN CORPUSCULAR VOLUME 86 fL (80-99); MEAN PLATELET VOLUME 8.8 fL (9.0-12.2); MONOCYTES % (AUTO) 4 % (0-12); NEUTROPHILS % (AUTO) 90 % (42-75); PLATELET COUNT 424 10^3/uL (130-400); WHITE BLOOD COUNT 14.3 10^3/uL (4.3-11.0)
--- NOTE | 2021-02-18 18:28 | Diagnostic Imaging Report ---
INDICATION: Dizziness. TIME OF EXAM: 6:18 PM CORRELATION is made with prior chest of 08/31/2020. FINDINGS: The heart is enlarged but stable. Lungs are clear. There is no infiltrate or failure. No effusion or pneumothorax is detected. IMPRESSION: No acute cardiopulmonary process is detected. Dictated by: Dictated on workstation # [id number]
[2021-02-18 18:29] LABS: EOSINOPHILS # (AUTO) 0.2 10^3/uL (0.0-0.3); LYMPHOCYTES # (AUTO) 0.7 X 10^3 (1.0-4.0); MONOCYTES # (AUTO) 0.6 X 10^3 (0.0-1.0); NEUTROPHILS # (AUTO) 12.8 X 10^3 (1.8-7.8)
--- NOTE | 2021-02-18 18:42 | ED General ---
General Chief Complaint: General Problems/Pain Stated Complaint: BP FLUCTUATING,DIZZY Nursing Triage Note: PT PRESENTS FROM THE CLINIC FOR INTERMITTENT EPISODES OF DIZZINESS WHEN SHE STANDS OR IS UP MOVING. SHE WAS JUST RELEASED FROM [facility] 4 DAYS AGO AND THEY REMOVED 14L OF FLUID FROM HER RESULTING IN A 30 LB WEIGHT LOSS. Source of Information: Patient History of Present Illness Date Seen by Provider: Feb 18, 2021 Time Seen by Provider: 17:45 Initial Comments Patient is a 60-year-old female with history of CHF recently discharged from [facility] 2 days ago for treatment of congestive heart failure with 30 pound plus diuresis. Patient states upon returning home she had a brief syn copal episode and that she has felt lightheaded and dizzy with standing on occasion today. She denies chest pain palpitations shortness of breath. She is compliant with her diuretics. No other acute symptoms or complaints. Patient was originally evaluated at the clinic. No fever chills, sweats. No other acute symptoms or complaints Severity: Mild Modifying Factors: improves with Other Associated Systoms: Other Allergies and Home Medications Allergies Coded Allergies: ibuprofen (Unverified Allergy, Unknown, 09/06/14) Patient Home Medication List Home Medication List Reviewed: Yes ALPRAZolam (Xanax Tablet) 0.25 Mg Tablet, 0.25 MG PO DAILY PRN for TREMORS, (Reported) Entered as Reported by: KAROL MOY on 11/12/191918 Albuterol/Ipratropium (Combivent Respimat Inhal [place]) 4 Gm Aero, 1 PUFF IH Q6H Prescribed by: GAIL MORENO on 11/20/19 1429 Allopurinol (Allopurinol) 300 Mg Tablet, 300 MG PO DAILY, (Reported) Entered as Reported by: BALA ERICKSON on 11/14/19 1154 Apixaban (Eliquis) 5 Mg Tablet, 5 MG PO BID, (Reported) Entered as Reported by: BALA ERICKSON on 11/14/19 1201 Atorvastatin Calcium (Atorvastatin Calcium) 40 Mg Tablet, 40 MG PO DAILY, (Reported) Entered as Reported by: KAROL MOY on 11/12/191918 Cholecalciferol (Vitamin D3) (Vitamin D3) 1,250 Mcg Capsule, 1,250 MCG PO WED, (Reported) Entered as Reported by: BALA ERICKSON on 11/14/19 1200 Fluticasone/Salmeterol (Advair Hfa 115-21 Mcg Inhaler) 12 Gm Hfa.aer.ad, 2 PUFF IH BID Prescribed by: GAIL MORENO on 11/20/19 142 Furosemide (Furosemide) 40 Mg Tablet, 40 MG PO DAILY Prescribed by: GAIL MORENO on 11/20/19 142 Levothyroxine Sodium (Levothyroxine Sodium) 25 Mcg Tablet, 25 MCG PO DAILY, (Reported) Entered as Reported by: KAROL MOY on 11/12/191918 Metoprolol Succinate (Metoprolol Succinate) 50 Mg Tab.er.24h, 50 MG PO DAILY, (Reported) Entered as Reported by: KAROL MOY on 11/12/191918 Mirabegron (Myrbetriq) 25 Mg Tab.er.24h, 25 MG PO DAILY, (Reported) Entered as Reported by: BALA ERICKSON on 11/14/19 1201 Multivitamin (Multivitamin) 1 Each Tablet, 1 EACH PO DAILY, (Reported) Entered as Reported by: BALA ERICKSON on 11/14/19 115 Oxycodone HCl/Acetaminophen (Oxycodon-Acetaminophen 7.5-325) 1 Each Tablet, 1 EA PO Q6H PRN for PAIN-MODERATE (5-7), (Reported) Entered as Reported by: KAROL MOY on 11/12/191918 Potassium Chloride (Klor-Con M20) 20 Meq Tab.er.prt, 20 MEQ PO DAILY@0900 Prescribed by: GAIL MORENO on 11/20/19 142 Sulfamethoxazole/Trimethoprim (Bactrim Ds Tablet) 1 Each Tablet, 1 EACH PO BID Prescribed by: LACI NUÑEZ on 01/10/21 0750 Venlafaxine HCl (Venlafaxine HCl ER) 150 Mg Cap.er.24h, 150 MG PO HS, (Reported) Entered as Reported by: BALA ERICKSON on 11/14/19 1154 Review of Systems Review of Systems Constitutional: see HPI EENTM: see HPI Respiratory: see HPI Cardiovascular: see HPI Gastrointestinal: see HPI Genitourinary: see HPI Musculoskeletal: see HPI Skin: see HPI Psychiatric/Neurological: See HPI Hematologic/Lymphatic: See HPI Immunological/Allergic: see HPI All Other Systems Reviewed Negative Unless Noted: Yes Past Osqoxdg-Fvnkjf-Feqzsh Hx Patient Social History Tobacco Use?: Yes Tobacco type used: Cigarettes Smoking Status: Former Smoker Use of E-Cig and/or Vaping dev: No Substance use?: No Alcohol Use?: No Pt feels they are or have been: No Immunizations Up To Date First/Initial COVID19 Vaccinat: JULY 2020 Second COVID19 Vaccination Chandler: AUGUST 2020 COVID19 Vaccine Caddy/Caddie Supervisor: MODERNA Seasonal Allergies Seasonal Allergies: No Past Medical History Surgeries: Yes (gastric sleeve) Section, Tubal Ligation Respiratory: Yes (Chronic O2 dep, denies URIEL by test result) Asthma, COPD Currently Using CPAP: No Currently Using BIPAP: No Cardiac: Yes Atrial Fibrillation, Cardiomyopathy, Hypertension Neurological: No Neuropathy 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 Disorders: No Female 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 Sexually Transmitted Disease: No HIV/AIDS: No Genitourinary: Yes UTI-Chronic Gastrointestinal: No Polyps Musculoskeletal: Yes Chronic Back Pain Endocrine: No HEENT: No Cancer: No Psychosocial: Yes Anxiety Integumentary: Yes (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, recent abscess surgery by Dr Strong) Recent Skin Changes Blood Disorders: No Family Medical History Cardiovascular disease 19 MOTHER Diabetes mellitus 19 FATHER 19 MOTHER G8 BROTHER G8 BROTHER G8 SISTER G8 SISTER FH: tremor 19 FATHER G8 SISTER Hypertension 19 FATHER G8 BROTHER G8 BROTHER G8 BROTHER G8 SISTER G8 SISTER Myocardial infarction 19 MOTHER G8 SISTER No Pertinent Family Hx Physical Exam Vital Signs Vital Signs - First Documented 02/18/21 17:22 Temp 36.0 Pulse 79 Resp 20 B/P (MAP) 103/65 (78) Pulse Ox 95 O2 Delivery Room Air Capillary Refill : Less Than 3 Seconds Height, Weight, BMI Height: 5'1.00" Weight: 452lbs. 0.0oz. 205.886061oj; 86.00 BMI Method:Stated General Appearance: No Apparent Distress, Anxious HEENT: PERRL/EOMI, Normal ENT Inspection Neck: Full Range of Motion, Supple Respiratory: Lungs Clear, No Respiratory Distress, Decreased Breath Sounds Extremity: Other (Lymphedema of lower extremities) Neurologic/Psychiatric: Alert, Oriented x3 Focused Exam Sepsis Stage: Ruled Out Progress/Results/Core Measures Suspected Sepsis SIRS Temperature: Pulse: 79 Respiratory Rate: 20 Laboratory Tests 02/18/21 17:33: White Blood Count 14.3H Blood Pressure 103 /65 Mean: 78 Laboratory Tests 02/18/21 17:33: Creatinine 0.85, Platelet Count 424H, Total Bilirubin 0.4 Results/Orders Lab Results Laboratory Tests Test 02/18/21 17:33 Range/Units White Blood Count 14.3 H 4.3-11.0 10^3/uL Red Blood Count 4.28 3.80-5.11 10^6/uL Hemoglobin 10.8 L 11.5-16.0 g/dL Hematocrit 37 35-52 % Mean Corpuscular Volume 86 80-99 fL Mean Corpuscular Hemoglobin 25 25-34 pg Mean Corpuscular Hemoglobin Concent 29 L 32-36 g/dL Red Cell Distribution Width 17.3 H 10.0-14.5 % Platelet Count 424 H 130-400 10^3/uL Mean Platelet Volume 8.8 L 9.0-12.2 fL Immature Granulocyte % (Auto) 1 % Neutrophils (%) (Auto) 90 H 42-75 % Lymphocytes (%) (Auto) 5 L 12-44 % Monocytes (%) (Auto) 4 0-12 % Eosinophils (%) (Auto) 1 0-10 % Basophils (%) (Auto) 0 0-10 % Neutrophils # (Auto) 12.8 H 1.8-7.8 X 10^3 Lymphocytes # (Auto) 0.7 L 1.0-4.0 X 10^3 Monocytes # (Auto) 0.6 0.0-1.0 X 10^3 Eosinophils # (Auto) 0.2 0.0-0.3 10^3/uL Basophils # (Auto) 0.0 0.0-0.1 10^3/uL Immature Granulocyte # (Auto) 0.1 0.0-0.1 10^3/uL Neutrophils % (Manual) 88 % Lymphocytes % (Manual) 3 % Monocytes % (Manual) 5 % Eosinophils % (Manual) 1 % Basophils % (Manual) 0 % Metamyelocytes % 1 % Band Neutrophils 1 % Atypical Lymphocytes 1 % Sodium Level 137 135-145 MMOL/L Potassium Level 3.6 3.6-5.0 MMOL/L Chloride Level 89 L 98-107 MMOL/L Carbon Dioxide Level 36 H 21-32 MMOL/L Anion Gap 12 5-14 MMOL/L Blood Urea Nitrogen 32 H 7-18 MG/DL Creatinine 0.85 0.60-1.30 MG/DL Estimat Glomerular Filtration Rate 68 BUN/Creatinine Ratio 38 Glucose Level 148 H 70-105 MG/DL Calcium Level 9.5 8.5-10.1 MG/DL Corrected Calcium 9.6 8.5-10.1 MG/DL Total Bilirubin 0.4 0.1-1.0 MG/DL Aspartate Amino Transf (AST/SGOT) 18 5-34 U/L Alanine Aminotransferase (ALT/SGPT) 15 0-55 U/L Alkaline Phosphatase 76 40-136 U/L Troponin I < 0.30 <0.30 NG/ML Pro-B-Type Natriuretic Peptide 350.7 H <75.0 PG/ML Total Protein 7.8 6.4-8.2 GM/DL Albumin 3.9 3.2-4.5 GM/DL Smear Scan My Orders Orders - STU BRO DO Cbc With Automated Diff (02/18/21 18:10) Comprehensive Metabolic Panel (02/18/21 18:10) Troponin I Fs (02/18/21 18:10) Probnp Fs (02/18/21 18:10) Chest 1 View Ap/Pa Only (02/18/21 18:10) Ekg-Prn For Chest Pain Or Rhyt (02/18/21 18:10) Ns Iv 1000 Ml (Sodium Chloride 0.9%) (02/18/21 18:15) Ekg Tracing (02/18/21 18:12) Manual Differential (02/18/21 17:33) Vital Signs/I&O 02/18/21 17:22 Temp 36.0 Pulse 79 Resp 20 B/P (MAP) 103/65 (78) Pulse Ox 95 O2 Delivery Room Air Capillary Refill : Less Than 3 Seconds Blood Pressure Mean: 78 Departure Communication (Admissions) Chronic A. fib, rate controlled, history of CHF with recent large fluid volume removal. 1 L of IV fluids given with significant symptomatic improvement. Patient's not short of breath post stable vital signs. Recommendations are supportive care watchful waiting and close PCP/cardiology follow-up. Return precautions reviewed. Patient verbalizes understanding and agreement discharge instructions prior to departure. Impression Primary Impression: Orthostatic dizziness Disposition: 01 HOME, SELF-CARE Condition: Stable Departure-Patient Inst. Decision time for Depature: 19:28 Referrals: SELF,SUZE MD (PCP/Family) Primary Care Physician Patient Instructions: Dizziness, Adult ED Add. Discharge Instructions: You were evaluated in the emergency department for dizziness. Please continue home medications as directed by your plasma center technician and follow-up with your PCP in 1 to 2 days for reevaluation. Be careful when transitioning from sitting to standing positions as you are at increased risk of fall and injury. Return to the ED if you develop new or worsening symptoms. All discharge instructions reviewed with patient and/or family. Voiced understanding. STU BRO DO Feb 18, 2021 18:42
[2021-02-18 18:47] LABS: BUN/CREATININE RATIO 38; CARBON DIOXIDE 36 MMOL/L (21-32); CHLORIDE 89 MMOL/L (98-107); CREATININE SERUM 0.85 MG/DL (0.60-1.30); GFR ESTIMATED 68; POTASSIUM 3.6 MMOL/L (3.6-5.0); SODIUM 137 MMOL/L (135-145)
[2021-02-18 18:48] LABS: ALANINE AMINOTRANSFERASE 15 U/L (0-55); ALBUMIN 3.9 GM/DL (3.2-4.5); ALKALINE PHOSPHATASE 76 U/L (40-136); BILIRUBIN,TOTAL 0.4 MG/DL (0.1-1.0); CALCIUM 9.5 MG/DL (8.5-10.1); GLUCOSE 148 MG/DL (70-105); TOTAL PROTEIN 7.8 GM/DL (6.4-8.2)
[2021-02-18 19:01] LABS: ATYPICAL LYMPHOCYTES 1 %; BAND NEUTROPHILS 1 %; BASOPHILS % (MANUAL) 0 %; EOSINOPHILS % (MANUAL) 1 %; LYMPHOCYTES % (MANUAL) 3 %; METAMYELOCYTES % 1 %; MONOCYTES % (MANUAL) 5 %; NEUTROPHILS % (MANUAL) 88 %
[2021-02-18 19:40] VITALS: BP 154/89
== END 2021-02-18 19:40 | disposition home or self-care (01) ==
LOC: EDUNIT# 17:19 → ER FS 17:20
DX: R42 Dizziness and giddiness (principal); J44.9 Chronic obstructive pulmonary disease, unspecified; I11.0 Hypertensive heart disease with heart failure; I50.9 Heart failure, unspecified; F41.9 Anxiety disorder, unspecified; G89.29 Other chronic pain; M54.9 Dorsalgia, unspecified; I48.91 Unspecified atrial fibrillation; Z86.14 Personal history of Methicillin resistant Staphylococcus aureus infection; Z87.891 Personal history of nicotine dependence; Z79.01 Long term (current) use of anticoagulants; Z79.891 Long term (current) use of opiate analgesic; Z79.899 Other long term (current) drug therapy
CPT/HCPCS: 36415; 71045; 80053; 83880; 84484; 85007; 85027; 93005

== ENCOUNTER → 2021-03-25 | Outpatient (CLI) | payer MEDICARE, MEDICAID ==
[~2021-03-25] MED LIST changes: +POTA-169 PO; -POTA20TA8 PO
== END ==
LOC: LAB FS 14:18
PROVIDERS: ATTEND Family Medicine
DX: Z20.822 Contact with and (suspected) exposure to COVID-19 (principal)
CPT/HCPCS: 87636

== ENCOUNTER 2021-06-15 14:32 | Emergency (ER) | payer MEDICARE, MEDICAID ==
[~2021-06-15] VITALS: Ht 152.5 cm; Wt 209.0 kg
[2021-06-15 14:52] LABS: BASOPHILS % (AUTO) 0 % (0-10); EOSINOPHILS # (AUTO) 0.2 10^3/uL (0.0-0.3); EOSINOPHILS % (AUTO) 2 % (0-10); HEMATOCRIT 33 % (35-52); HEMOGLOBIN 9.3 g/dL (11.5-16.0); LYMPHOCYTES # (AUTO) 0.7 10^3/uL (1.0-4.0); LYMPHOCYTES % (AUTO) 7 % (12-44); MEAN CORPUSCULAR HEMOGLOBIN 24 pg (25-34); MEAN CORPUSCULAR HGB CONC 28 g/dL (32-36); MEAN CORPUSCULAR VOLUME 86 fL (80-99); MEAN PLATELET VOLUME 8.4 fL (9.0-12.2); MONOCYTES # (AUTO) 0.4 10^3/uL (0.0-1.0); MONOCYTES % (AUTO) 4 % (0-12); NEUTROPHILS # (AUTO) 8.7 10^3/uL (1.8-7.8); NEUTROPHILS % (AUTO) 86 % (42-75); PLATELET COUNT 269 10^3/uL (130-400); WHITE BLOOD COUNT 10.1 10^3/uL (4.3-11.0)
[2021-06-15 15:01] LABS: INR 0.9 (0.8-1.4)
--- NOTE | 2021-06-15 15:04 | Diagnostic Imaging Report ---
EXAMINATION: Chest radiograph, portable AP view. DATE: 06/15/2021 2:59 PM INDICATION: 60-year-old female, weakness. COMPARISON: February 18, 2021. FINDINGS: Heart size and mediastinal contours are unchanged. There is no identified pneumothorax. There is no large pleural effusion. There is no identified interval focal airspace consolidation. IMPRESSION: No identified acute cardiopulmonary abnormality. Dictated by: Dictated on workstation # [id number]
[2021-06-15 15:06] LABS: ALANINE AMINOTRANSFERASE 9 U/L (0-55); ALBUMIN 3.8 GM/DL (3.2-4.5); ALKALINE PHOSPHATASE 71 U/L (40-136); BILIRUBIN,TOTAL 0.2 MG/DL (0.1-1.0); BUN/CREATININE RATIO 37; CALCIUM 9.2 MG/DL (8.5-10.1); CARBON DIOXIDE 39 MMOL/L (21-32); CHLORIDE 94 MMOL/L (98-107); GFR ESTIMATED 103; GLUCOSE 116 MG/DL (70-105); LIPASE 21 U/L (8-78); MAGNESIUM 2.3 MG/DL (1.6-2.4); POTASSIUM 4.6 MMOL/L (3.6-5.0); SODIUM 138 MMOL/L (135-145); TOTAL PROTEIN 7.3 GM/DL (6.4-8.2)
--- NOTE | 2021-06-15 15:20 | ED General ---
General Chief Complaint: General Problems/Pain Stated Complaint: A-FIB HX Nursing Triage Note: PT TO ROOM FS01 WITH C/O A RED FLOATER IN LEFT EYE. PT REPORTS THE RED FLOATY IS GONE NOW. PT REPORTS SHE MAY BE IN AFIB. PT HAS HX OF AFIB. Source of Information: Patient History of Present Illness Date Seen by Provider: Jun 15, 2021 Time Seen by Provider: 14:32 Initial Comments 60 yo female presenting with EMS from home with complaint of feeling weaker than normal. She also was concerned because she had seen a floater in her left eye but it was gone on arrival to the ED. She feels that she is in atrial fibrillation and concerned the rate has been fluctuating a lot. She also was concerned because her little toes on her feet were tingling. She has a history of neuropathy. She also has heart failure and is on chronic oxygen at 2 to 3 L/min. She has to use a walker and have assistance at home to get around. However today she just felt like she was weaker than usual and had more difficulty getting around. She denies fever, chills, headache, increased shortness of breath, abdominal pain, nausea, vomiting, cough, diarrhea, constipation. Timing/Duration: 12-24 Hours Severity: Moderate Modifying Factors: worse with Movement Associated Systoms: No Chest Pain, No Cough, No Diaphoresis, No Fever/Chills, No Headaches, No Loss of Appetite; Malaise; No Nausea/Vomiting, No Rash, No Seizure; Shortness of Air (Chronic and not worse than usual); No Syncope; Weakness Allergies and Home Medications Allergies Coded Allergies: ibuprofen (Unverified Allergy, Unknown, 09/06/14) Patient Home Medication List Home Medication List Reviewed: Yes ALPRAZolam (Xanax Tablet) 0.25 Mg Tablet, 0.25 MG PO DAILY PRN for TREMORS, (Reported) Entered as Reported by: KAROL MOY on 11/12/191918 Albuterol/Ipratropium (Combivent Respimat Inhal [place]) 4 Gm Aero, 1 PUFF IH Q6H Prescribed by: GAIL MORENO on 11/20/19 1429 Allopurinol (Allopurinol) 300 Mg Tablet, 300 MG PO DAILY, (Reported) Entered as Reported by: BALA ERICKSON on 11/14/19 1154 Apixaban (Eliquis) 5 Mg Tablet, 5 MG PO BID, (Reported) Entered as Reported by: BALA ERICKSON on 11/14/19 120 Atorvastatin Calcium (Atorvastatin Calcium) 40 Mg Tablet, 40 MG PO DAILY, (Reported) Entered as Reported by: KAROL MOY on 11/12/191918 Cholecalciferol (Vitamin D3) (Vitamin D3) 1,250 Mcg Capsule, 1,250 MCG PO WED, (Reported) Entered as Reported by: BALA ERICKSON on 11/14/19 1200 Fluticasone/Salmeterol (Advair Hfa 115-21 Mcg Inhaler) 12 Gm Hfa.aer.ad, 2 PUFF IH BID Prescribed by: GAIL MORENO on 11/20/191428 Furosemide (Furosemide) 40 Mg Tablet, 40 MG PO DAILY Prescribed by: GAIL MORENO on 11/20/191428 Levothyroxine Sodium (Levothyroxine Sodium) 25 Mcg Tablet, 25 MCG PO DAILY, (Reported) Entered as Reported by: KARLO MOY on 11/12/191918 Metoprolol Succinate (Metoprolol Succinate) 50 Mg Tab.er.24h, 50 MG PO DAILY, (Reported) Entered as Reported by: KAROL MOY on 11/12/191918 Mirabegron (Myrbetriq) 25 Mg Tab.er.24h, 25 MG PO DAILY, (Reported) Entered as Reported by: BALA ERICKSON on 11/14/19 120 Multivitamin (Multivitamin) 1 Each Tablet, 1 EACH PO DAILY, (Reported) Entered as Reported by: BALA ERICKSON on 11/14/19 115 Nitrofurantoin Monohyd/M-Cryst (Macrobid 100 mg Capsule) 100 Mg Capsule, 1 TAB PO BID Prescribed by: REJI CASTAÑEDA on 06/15/21 1706 Oxycodone HCl/Acetaminophen (Oxycodon-Acetaminophen 7.5-325) 1 Each Tablet, 1 EA PO Q6H PRN for PAIN-MODERATE (5-7), (Reported) Entered as Reported by: KAROL MOY on 11/12/191918 Potassium Chloride (Klor-Con M20) 20 Meq Tab.er.prt, 20 MEQ PO DAILY@0900 Prescribed by: GAIL MORENO on 11/20/19 1429 Sulfamethoxazole/Trimethoprim (Bactrim Ds Tablet) 1 Each Tablet, 1 EACH PO BID Prescribed by: LACI NUÑEZ on 01/10/21 0750 Venlafaxine HCl (Venlafaxine HCl ER) 150 Mg Cap.er.24h, 150 MG PO HS, (Reported) Entered as Reported by: BALA ERICKSON on 11/14/19 1154 Review of Systems Review of Systems Constitutional: No chills, No fever EENTM: see HPI Respiratory: see HPI Cardiovascular: see HPI Gastrointestinal: no symptoms reported Genitourinary: dysuria Musculoskeletal: other (General muscle weakness) Skin: No rash Psychiatric/Neurological: Tingling (In her little toes), Weakness (Generalized) Past Swcrpkl-Lyoysm-Tnbace Hx Patient Social History Tobacco Use?: No Smoking Status: Never a Smoker Smokeless Tobacco Frequency: Never a User Use of E-Cig and/or Vaping dev: No Use of E-Cig and/or Vaping Gilberto: Never a User Substance use?: No Alcohol Use?: No Pt feels they are or have been: No Immunizations Up To Date First/Initial COVID19 Vaccinat: JULY 2020 Second COVID19 Vaccination Chandler: AUGUST 2020 Seasonal Allergies Seasonal Allergies: No Past Medical History Surgery/Hospitalization HX: atrial fibrillation, CHF, hypertension, COPD, morbid obesity Surgeries: Yes (gastric sleeve) Section, Tubal Ligation Respiratory: Yes (Chronic O2 dep, denies URIEL by test result) Asthma, COPD Currently Using CPAP: No Currently Using BIPAP: No Cardiac: Yes Atrial Fibrillation, Cardiomyopathy, Hypertension Neurological: No Neuropathy 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 Disorders: No Female 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 Disorders: 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 Sexually Transmitted Disease: No HIV/AIDS: No Genitourinary: Yes UTI-Chronic Gastrointestinal: No Polyps Musculoskeletal: Yes Chronic Back Pain Endocrine: No HEENT: No Cancer: No Psychosocial: Yes Anxiety Integumentary: Yes (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, recent abscess surgery by Dr Strong) Recent Skin Changes Blood Disorders: No Family Medical History Cardiovascular disease 19 MOTHER Diabetes mellitus 19 FATHER 19 MOTHER G8 BROTHER G8 BROTHER G8 SISTER G8 SISTER FH: tremor 19 FATHER G8 SISTER Hypertension 19 FATHER G8 BROTHER G8 BROTHER G8 BROTHER G8 SISTER G8 SISTER Myocardial infarction 19 MOTHER G8 SISTER No Pertinent Family Hx Physical Exam Vital Signs Vital Signs - First Documented 06/15/21 14:32 Temp 36.4 Pulse 68 Resp 12 B/P (MAP) 152/67 (95) Pulse Ox 99 O2 Delivery Nasal Cannula O2 Flow Rate 2.00 Capillary Refill : Less Than 3 Seconds Height, Weight, BMI Height: 5'1.00" Weight: 452lbs. 0.0oz. 205.926277kj; 89.00 BMI Method:Stated General Appearance: Obese HEENT: PERRL/EOMI, Pharynx Normal Neck: Non Tender Respiratory: Chest Non Tender, No Accessory Muscle Use, No Respiratory Distress, Decreased Breath Sounds Cardiovascular: Normal Peripheral Pulses, Irregularly Irregular Gastrointestinal: Normal Bowel Sounds, No Pulsatile Mass, Non Tender, Soft Rectal: Deferred Extremity: Normal Capillary Refill, Pedal Edema (1+ bilateral lower extremity on top of morbid obesity) Neurologic/Psychiatric: Alert, Oriented x3, sap ppm consultant II-XII Norm as Tested Skin: Warm/Dry Progress/Results/Core Measures Suspected Sepsis SIRS Temperature: Pulse: 68 Respiratory Rate: 12 Laboratory Tests 06/15/21 14:45: White Blood Count 10.1 Blood Pressure 152 /67 Mean: 95 Laboratory Tests 06/15/21 14:45: Creatinine 0.60, INR Comment 0.9, Platelet Count 269, Total Bilirubin 0.2 Results/Orders Lab Results Laboratory Tests Test 06/15/21 14:45 06/15/21 15:18 Range/Units White Blood Count 10.1 4.3-11.0 10^3/uL Red Blood Count 3.83 3.80-5.11 10^6/uL Hemoglobin 9.3 L 11.5-16.0 g/dL Hematocrit 33 L 35-52 % Mean Corpuscular Volume 86 80-99 fL Mean Corpuscular Hemoglobin 24 L 25-34 pg Mean Corpuscular Hemoglobin Concent 28 L 32-36 g/dL Red Cell Distribution Width 17.2 H 10.0-14.5 % Platelet Count 269 130-400 10^3/uL Mean Platelet Volume 8.4 L 9.0-12.2 fL Immature Granulocyte % (Auto) 1 % Neutrophils (%) (Auto) 86 H 42-75 % Lymphocytes (%) (Auto) 7 L 12-44 % Monocytes (%) (Auto) 4 0-12 % Eosinophils (%) (Auto) 2 0-10 % Basophils (%) (Auto) 0 0-10 % Neutrophils # (Auto) 8.7 H 1.8-7.8 10^3/uL Lymphocytes # (Auto) 0.7 L 1.0-4.0 10^3/uL Monocytes # (Auto) 0.4 0.0-1.0 10^3/uL Eosinophils # (Auto) 0.2 0.0-0.3 10^3/uL Basophils # (Auto) 0.0 0.0-0.1 10^3/uL Immature Granulocyte # (Auto) 0.1 0.0-0.1 10^3/uL Neutrophils % (Manual) 91 % Lymphocytes % (Manual) 5 % Monocytes % (Manual) 2 % Eosinophils % (Manual) 2 % Prothrombin Time 13.0 12.2-14.7 SEC INR Comment 0.9 0.8-1.4 Activated Partial Thromboplast Time 55 H 24-35 SEC Sodium Level 138 135-145 MMOL/L Potassium Level 4.6 3.6-5.0 MMOL/L Chloride Level 94 L 98-107 MMOL/L Carbon Dioxide Level 39 H 21-32 MMOL/L Anion Gap 5 5-14 MMOL/L Blood Urea Nitrogen 22 H 7-18 MG/DL Creatinine 0.60 0.60-1.30 MG/DL Estimat Glomerular Filtration Rate 103 BUN/Creatinine Ratio 37 Glucose Level 116 H 70-105 MG/DL Calcium Level 9.2 8.5-10.1 MG/DL Corrected Calcium 9.4 8.5-10.1 MG/DL Magnesium Level 2.3 1.6-2.4 MG/DL Total Bilirubin 0.2 0.1-1.0 MG/DL Aspartate Amino Transf (AST/SGOT) 11 5-34 U/L Alanine Aminotransferase (ALT/SGPT) 9 0-55 U/L Alkaline Phosphatase 71 40-136 U/L Myoglobin < 21.0 10.0-92.0 NG/ML Troponin I < 0.30 <0.30 NG/ML Pro-B-Type Natriuretic Peptide 460.0 H <75.0 PG/ML Total Protein 7.3 6.4-8.2 GM/DL Albumin 3.8 3.2-4.5 GM/DL Lipase 21 8-78 U/L Urine Color YELLOW Urine Clarity CLEAR Urine pH 6.0 5-9 Urine Specific [place] 1.025 H 1.016-1.022 Urine Protein NEGATIVE NEGATIVE Urine Glucose (UA) NEGATIVE NEGATIVE Urine Ketones NEGATIVE NEGATIVE Urine Nitrite NEGATIVE NEGATIVE Urine Bilirubin NEGATIVE NEGATIVE Urine Urobilinogen 0.2 < = 1.0 MG/DL Urine Leukocyte Esterase NEGATIVE NEGATIVE Urine RBC (Auto) 1+ H NEGATIVE Urine RBC 0-2 /HPF Urine WBC 10-25 H /HPF Urine Squamous Epithelial Cells 5-10 /HPF Urine Crystals NONE /LPF Urine Bacteria LARGE H /HPF Urine Casts NONE /LPF Urine Mucus NEGATIVE /LPF Urine Culture Indicated YES My Orders Orders - REJI CASTAÑEDA MD Cbc With Automated Diff (06/15/21 14:47) Magnesium (06/15/21 14:47) Chest 1 View Ap/Pa Only (06/15/21 14:47) Ekg Tracing (06/15/21 14:47) Comprehensive Metabolic Panel (06/15/21 14:47) Myoglobin Serum (06/15/21 14:47) Protime With Inr (06/15/21 14:47) Partial Thromboplastin Time (06/15/21 14:47) O2 (06/15/21 14:47) Monitor-Rhythm Ecg Trace Only (06/15/21 14:47) Ed Iv/Invasive Line Start (06/15/21 14:47) Lipase (06/15/21 14:47) Troponin I Fs (06/15/21 14:47) Probnp Fs (06/15/21 14:47) Ua Culture If Indicated (06/15/21 14:47) Manual Differential (06/15/21 14:45) Urine Culture (06/15/21 15:18) Ceftriaxone 1 Gm Pre-Mix (Rocephin 1 Gm (06/15/21 16:39) Vital Signs/I&O 06/15/21 14:32 Temp 36.4 Pulse 68 Resp 12 B/P (MAP) 152/67 (95) Pulse Ox 99 O2 Delivery Nasal Cannula O2 Flow Rate 2.00 Capillary Refill : Less Than 3 Seconds Blood Pressure Mean: 95 Progress Note #1: Progress Note Obtain labs and urinalysis. Electrocardiogram to document her heart rhythm. Progress Note #2: Progress Note Labs appear stable without acute significant abnormality. She does have some chronic anemia and her urinalysis showed signs of infection. Will treat with Rocephin and continue cephalosporins at home. Counseled to follow-up through the clinic for continued concerns. ECG Initial ECG Impression Date: Jun 15, 2021 Initial ECG Impression Time: 14:40 Initial ECG Rate: 68 Initial ECG Rhythm: A Fib/Flutter Initial ECG Comparisson: Unchanged Comment Atrial fibrillation with a heart rate of 68 bpm. QT interval 379 ms with a QTc interval 404 ms. There is no acute ST elevation. Appears similar to prior tracings in the system. Diagnostic Imaging Diagonstic Imaging: Xray Plain Films/CT/US/NM/MRI: chest Comments [facility], [facility]. [place], [place] NAME: ROSIE NINO [facility] REC#: [id number] PT STATUS: REG ER : 1960 PHYSICIAN: REJI CASTAÑEDA MD ADMIT DATE: 06/15/21/ER FS Signed Date of Exam:06/15/21 CHEST 1 VIEW AP/PA ONLY EXAMINATION: Chest radiograph, portable AP view. DATE: 06/15/2021 2:59 PM INDICATION: 60-year-old female, weakness. COMPARISON: February 18, 2021. FINDINGS: Heart size and mediastinal contours are unchanged. There is no identified pneumothorax. There is no large pleural effusion. There is no identified interval focal airspace consolidation. IMPRESSION: No identified acute cardiopulmonary abnormality. Dictated by: Dictated on workstation # [id number] Dict: 06/15/21 1500 Trans: 06/15/21 1507 [facility] [id number] Interpreted by: VINCE THOMAS MD Electronically signed by: VINCE THOMAS MD 06/15/21 1507 Reviewed: Reviewed by Me Departure Impression Primary Impression: Cystitis without hematuria Additional Impression: Weakness Disposition: 01 HOME, SELF-CARE Condition: Stable Departure-Patient Inst. Decision time for Depature: 16:59 Referrals: SUZE KRISHNAMURTHY MD (PCP/Family) Primary Care Physician Patient Instructions: Urinary Tract Infection, Adult ED, Weakness ED Add. Discharge Instructions: Take the full course of antibiotics for urine infection. Follow up with clinic for continued concerns about weakness and urine infection Continue your regular medicines All discharge instructions reviewed with patient and/or family. Voiced understanding. Scripts Nitrofurantoin Monohyd/M-Cryst (Macrobid 100 mg Capsule) 100 Mg Capsule 1 TAB PO BID for UTI for 10 Days, #20 CAP 0 Refills Prov: REJI CASTAÑEDA MD 06/15/21 REJI CASTAÑEDA MD Jun 15, 2021 15:20
[2021-06-15 15:22] LABS: EOSINOPHILS % (MANUAL) 2 %; LYMPHOCYTES % (MANUAL) 5 %; MONOCYTES % (MANUAL) 2 %; NEUTROPHILS % (MANUAL) 91 %
[2021-06-15 15:24] LABS: BILIRUBIN,URINE NEGATIVE (NEGATIVE); CLARITY,URINE CLEAR; COLOR,URINE YELLOW; GLUCOSE, URINE (UA) NEGATIVE (NEGATIVE); KETONES,URINE NEGATIVE (NEGATIVE); LEUKOCYTE ESTERASE ,URINE NEGATIVE (NEGATIVE); NITRITE,URINE NEGATIVE (NEGATIVE); PROTEIN,URINE NEGATIVE (NEGATIVE)
[2021-06-15 15:28] LABS: BACTERIA,URINE LARGE /HPF; RBC,URINE 0-2 /HPF
[2021-06-15] MEDS ORDERED: cefTRIAXone 1 GM PRE-MIX 50 ML IV STA (16:39)
[2021-06-15] MEDS ORDERED: NITR-65 PO (17:06)
[2021-06-15 17:20] VITALS: BP 147/80
== END 2021-06-15 17:20 | disposition home or self-care (01) ==
LOC: EDUNIT# 14:32 → ER FS 14:33
DX: N30.90 Cystitis, unspecified without hematuria (principal); R53.1 Weakness; E66.9 Obesity, unspecified; I50.9 Heart failure, unspecified; Z68.45 Body mass index [BMI] 70 or greater, adult
CPT/HCPCS: 36415; 71045; 80053; 81000; 83690; 83735; 83874; 83880; 84484; 85007; 85027; 85610; 85730; 87077; 87088; 87186; 93005; 93041

== ENCOUNTER 2022-01-24 19:57 | Emergency (ER) | payer MEDICARE, MEDICAID ==
[~2022-01-24] VITALS: Ht 152.4 cm; Wt 208.6 kg
[~2022-01-24 19:57] MED LIST changes: +NITR-65 PO
--- NOTE | 2022-01-24 20:34 | ED Cough/URI ---
General Chief Complaint: COVID19 Suspect/Confirmed Stated Complaint: CHEST PAINS, FEVER,CHILLS Nursing Triage Note: Patient reports having a positive covid exposure earlier this week. Patient presents to the ER with headache, sore throat, cough and a low grade temperature. Patient called an operator receptionist nurse line and they advised her to go to the ER. Patient has a history of chronic bronchitis, home O2 and obesity. Source: patient Exam Limitations: no limitations History of Present Illness Date Seen by Provider: Jan 24, 2022 Time Seen by Provider: 20:06 Initial Comments 61-year-old female patient with history of morbid obesity and BMI of 89.8, COPD on 3 L of home oxygen, CHF, elephantiasis, cardiomyopathy, A. fib on Eliquis, hypertension, neuropathy, chronic back pain, anxiety presented POV with complaining of exposure to COVID and having fever and sore throat and headache and increasing cough since this morning. Patient states she was exposed to positive COVID patient 5 days ago and since this morning had sore throat, fever up to 101, headache, nasal congestion and increasing chronic cough with chest soreness. Patient denies myalgia, nausea and vomiting, diarrhea and constipation, urinary symptoms. Patient states she had 2 negative COVID test at home today. Patient called the nurse line and advised to come to ER. Allergies and Home Medications Allergies Coded Allergies: ibuprofen (Unverified Allergy, Unknown, 09/06/14) levofloxacin (Verified Allergy, Unknown, 06/18/21) Patient Home Medication List Home Medication List Reviewed: Yes ALPRAZolam (Xanax Tablet) 0.25 Mg Tablet, 0.25 MG PO DAILY PRN for TREMORS, (Reported) Entered as Reported by: KAROL MOY on 11/12/191918 Albuterol/Ipratropium (Combivent Respimat Inhal Hye) 4 Gm Aero, 1 PUFF IH Q6H Prescribed by: GAIL MORENO on 11/20/19 1429 Allopurinol (Allopurinol) 300 Mg Tablet, 300 MG PO DAILY, (Reported) Entered as Reported by: BALA ERICKSON on 11/14/19 1154 Apixaban (Eliquis) 5 Mg Tablet, 5 MG PO BID, (Reported) Entered as Reported by: BALA ERICKSON on 11/14/19 1201 Atorvastatin Calcium (Atorvastatin Calcium) 40 Mg Tablet, 40 MG PO DAILY, (Reported) Entered as Reported by: KAROL MOY on 11/12/191918 Cholecalciferol (Vitamin D3) (Vitamin D3) 1,250 Mcg Capsule, 1,250 MCG PO WED, (Reported) Entered as Reported by: BALA ERICKSON on 11/14/19 1200 Fluticasone/Salmeterol (Advair Hfa 115-21 Mcg Inhaler) 12 Gm Hfa.aer.ad, 2 PUFF IH BID Prescribed by: GAIL MORENO on 11/20/19 142 Furosemide (Furosemide) 40 Mg Tablet, 40 MG PO DAILY Prescribed by: GAIL MORENO on 11/20/19 142 Levothyroxine Sodium (Levothyroxine Sodium) 25 Mcg Tablet, 25 MCG PO DAILY, (Reported) Entered as Reported by: KAROL MOY on 11/12/191918 Metoprolol Succinate (Metoprolol Succinate) 50 Mg Tab.er.24h, 50 MG PO DAILY, (Reported) Entered as Reported by: KAROL MOY on 11/12/191918 Mirabegron (Myrbetriq) 25 Mg Tab.er.24h, 25 MG PO DAILY, (Reported) Entered as Reported by: BALA ERICKSON on 11/14/19 1201 Multivitamin (Multivitamin) 1 Each Tablet, 1 EACH PO DAILY, (Reported) Entered as Reported by: BALA ERICKSON on 11/14/19 1158 Nitrofurantoin Monohyd/M-Cryst (Macrobid 100 mg Capsule) 100 Mg Capsule, 1 TAB PO BID Prescribed by: REJI CASTAÑEDA on 06/15/21 1706 Oxycodone HCl/Acetaminophen (Oxycodon-Acetaminophen 7.5-325) 1 Each Tablet, 1 EA PO Q6H PRN for PAIN-MODERATE (5-7), (Reported) Entered as Reported by: KAROL MOY on 11/12/191918 Potassium Chloride (Klor-Con M20) 20 Meq Tab.er.prt, 20 MEQ PO DAILY@0900 Prescribed by: GAIL MORENO on 11/20/19 142 Sulfamethoxazole/Trimethoprim (Bactrim Ds Tablet) 1 Each Tablet, 1 EACH PO BID Prescribed by: LACI NUÑEZ on 01/10/21 0750 Venlafaxine HCl (Venlafaxine HCl ER) 150 Mg Cap.er.24h, 150 MG PO HS, (Reported) Entered as Reported by: BALA ERICKSON on 11/14/19 2484 Review of Systems Review of Systems Constitutional: see HPI EENTM: see HPI Respiratory: see HPI Cardiovascular: see HPI Genitourinary: see HPI Musculoskeletal: see HPI Skin: see HPI Psychiatric/Neurological: See HPI Immunological/Allergic: see HPI All Other Systems Reviewed Negative Unless Noted: Yes Past Ngsuyad-Ehpdgg-Bwjcxv Hx Patient Social History Tobacco Use?: No Substance use?: No Alcohol Use?: No Pt feels they are or have been: No Immunizations Up To Date First/Initial COVID19 Vaccinat: JULY 2020 Second COVID19 Vaccination [place]: AUGUST 2020 Seasonal Allergies Seasonal Allergies: No Past Medical History Surgery/Hospitalization HX: atrial fibrillation, CHF, hypertension, COPD, morbid obesity Surgeries: Yes (gastric sleeve) Section, Tubal Ligation Respiratory: Yes (Chronic O2 dep, denies URIEL by test result) Asthma, COPD Currently Using CPAP: No Currently Using BIPAP: No Cardiac: Yes Atrial Fibrillation, Cardiomyopathy, Hypertension Neurological: No Neuropathy 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 Disorders: No Female 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 Disorders: 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: Tubal Ligation Sexually Transmitted Disease: No HIV/AIDS: No Genitourinary: Yes UTI-Chronic Gastrointestinal: No Polyps Musculoskeletal: Yes Chronic Back Pain Endocrine: No HEENT: No Cancer: No Psychosocial: Yes Anxiety Integumentary: Yes (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 0.0oz. 205.199016pa; 89.00 BMI Method:Stated General Appearance: no apparent distress, obese Eyes: Bilateral Eye Normal Inspection HEENT: PERRL/EOMI Neck: non-tender Respiratory: chest non-tender, lungs clear, normal breath sounds, no respiratory distress, no accessory muscle use Cardiovascular: regular rate, rhythm Extremities: swelling, other (Elephantiasis) Neurologic/Psychiatric: oriented x 3 Skin: No rash Progress/Results/Core Measures Suspected Sepsis SIRS Temperature: Pulse: 98 Respiratory Rate: 20 Blood Pressure / Mean: Results/Orders Lab Results Laboratory Tests Test 01/24/22 20:10 Range/Units My Orders Orders - LOLIS SANFORD MD Covid 19 Inhouse Test (01/24/22 20:15) Influenza A And B By Pcr (01/24/22 20:15) Isolation Central Supply Req (01/24/22 20:15) Chest 1 View Ap/Pa Only (01/24/22 20:15) Vital Signs/I&O 01/24/22 01/24/22 20:00 20:00 Temp 37.6 Pulse 98 Resp 20 B/P (MAP) Pulse Ox 97 O2 Delivery Nasal Cannula Nasal Cannula O2 Flow Rate 2.00 2.00 Capillary Refill : Less Than 3 Seconds Progress Note : Progress Note Evaluation of patient in ER showed 61-year-old female patient with morbid obesity and multiple medical problem on home oxygen with exposure to positive COVID-patient and having low-grade fever and cough and sore throat since this morning. Patient had 2 negative home COVID test. Patient had temperature of 37.6 with normal O2 sat on home 3 L of oxygen. Chest x-ray did not show acute infiltration. COVID and flu test was negative. Patient advised to continue Tylenol every 6 hours for fever and take home nebulizer treatment. Patient advised to follow-up with primary care physician or ER if symptoms getting worse. Diagnostic Imaging Diagonstic Imaging: Xray Comments 1 view chest x-ray interpreted by radiologist and reviewed by me and showed: [place], [place] NAME: ROSIE NINO [facility] REC#: [id number] PT STATUS: REG ER : 1960 PHYSICIAN: LOLIS SANFORD MD ADMIT DATE: 01/24/22/ER FS Draft Date of Exam:01/24/22 CHEST 1 VIEW AP/PA ONLY INDICATION: Shortness of breath. Covid exposure. Cough. COMPARISON: 06/15/2021. FINDINGS: Lung volumes appear slightly diminished. There is enlargement of the cardiac silhouette which appears unchanged from prior exam. The central pulmonary vascularity appears appropriate. The costophrenic angles are not well delineated which may be due to large body habitus and poor tissue penetration. Effusions could not be completely excluded based on this exam. There is no evidence of a pneumothorax. IMPRESSION: Low lung volumes with enlarged cardiac silhouette. The costophrenic angle is not well delineated on this examination which may be due to body habitus. Effusions could not be completely excluded. The visualized portion of the lungs appear clear and central pulmonary vascularity appears appropriate. Dictated on workstation # [id number] Dict: 01/24/222028 Trans: 01/24/222032 [facility] [id number] Interpreted by: SOFY WATTS MD Electronically signed by: Departure Impression Primary Impression: Upper respiratory infection, viral Disposition: 01 HOME, SELF-CARE Condition: Stable Departure-Patient Inst. Referrals: SELFSUZE MD (PCP/Family) Primary Care Physician Patient Instructions: Cough, Runny Nose, and the Common Cold (DC) Add. Discharge Instructions: Continue home medication and nebulizer treatment Take Tylenol every 6 hours as needed for fever and pain Return to ER or follow-up with your primary care physician if getting worse All discharge instructions reviewed with patient and/or family. Voiced understanding. LOLIS SANFORD MD Jan 24, 2022 20:34
== END 2022-01-24 20:48 | disposition home or self-care (01) ==
LOC: EDUNIT# 19:57 → ER FS 20:00
DX: J06.9 Acute upper respiratory infection, unspecified (principal); J44.9 Chronic obstructive pulmonary disease, unspecified; I48.91 Unspecified atrial fibrillation; E66.01 Morbid (severe) obesity due to excess calories; Z68.45 Body mass index [BMI] 70 or greater, adult; Z99.81 Dependence on supplemental oxygen; Z79.01 Long term (current) use of anticoagulants
CPT/HCPCS: 71045; 87636